=== PATIENT | male | born 1965 | race Caucasian/White ===

== ENCOUNTER 2016-12-05 12:12 | Outpatient (CLI) | payer MEDICAID | END 2016-12-05 12:13 | disposition home or self-care (01) | DX: I10 Essential (primary) hypertension (principal); Z13.1 Encounter for screening for diabetes mellitus; Z13.29 Encounter for screening for other suspected endocrine disorder; Z13.0 Encounter for screening for diseases of the blood and blood-forming organs and certain disorders involving the immune mechanism; I69.959 Hemiplegia and hemiparesis following unspecified cerebrovascular disease affecting unspecified side ==

== ENCOUNTER 2017-05-13 13:20 | Outpatient (CLI) | payer MEDICAID ==
--- NOTE | 2017-05-13 16:15 | XRAY Report ---
THREE VIEW RIGHT ELBOW: 05/13/2017 CLINICAL INDICATION: Contusion followup. FINDINGS: AP, lateral, and oblique views of the right elbow demonstrate no evidence of fracture or d islocation. The joint spaces are preserved. No radiopaque foreign body is seen in the soft tissues. IMPRESSION: NORMAL RIGHT ELBOW. JOB #: [id number] EXT JOB #:[id number]
== END 2017-05-13 13:21 | disposition home or self-care (01) ==
LOC: DI.S 13:20
PROVIDERS: ATTEND Nurse Practitioner Family
DX: S50.01XD Contusion of right elbow, subsequent encounter (principal)

== ENCOUNTER 2018-03-03 15:08 | Outpatient (CLI) | payer MEDICAID ==
[2018-03-03 19:35] LABS: ALBUMIN 3.7 g/dL (3.2-5.5); ALBUMIN/GLOBULIN RATIO 1.2 (1.0-2.2); ALKALINE PHOSPHATASE 73 IU/L (42-121); ALT ALANINE AMINOTRANSFERASE 56 IU/L (10-60); AST ASPARTATE AMINOTRANSFERASE 51 IU/L (10-42); BILIRUBIN,TOTAL 1.1 mg/dL (0.2-1.0); BUN - BLOOD UREA NITROGEN 13 mg/dL (6-20); CALCIUM 8.7 mg/dL (8.5-10.3); CARBON DIOXIDE - CO2 27 mmol/L (21-32); CHLORIDE 102 mmol/L (101-111); CHOL/HDL RATIO 4.3 (<5.0); CHOLESTEROL 198 mg/dL; CREATININE 0.8 mg/dL (0.6-1.2); GFR - MDRD 102 (>89); GLUCOSE 141 mg/dL (70-100); HDL CHOLESTEROL 46 mg/dL; LDL CHOLESTEROL,CALCULATED 92 mg/dL; SODIUM 137 mmol/L (135-145); TOTAL PROTEIN 6.9 g/dL (6.7-8.2); VLDL CHOLESTEROL 60 mg/dL
== END 2018-03-03 15:09 | disposition home or self-care (01) ==
LOC: LAB.S 15:08
PROVIDERS: ATTEND Nurse Practitioner Family
DX: I10 Essential (primary) hypertension (principal); F10.10 Alcohol abuse, uncomplicated; I69.959 Hemiplegia and hemiparesis following unspecified cerebrovascular disease affecting unspecified side
CPT/HCPCS: 36415; 80053; 80061; 83721

== ENCOUNTER 2018-03-17 14:48 | Outpatient (CLI) | payer MEDICAID ==
[2018-03-17 20:17] LABS: HB2 TOTAL 16.2 g/dL; HEMOGLOBIN A1C 0.87 g/dL; HEMOGLOBIN A1C % 7.1 % (4.6-6.2)
== END 2018-03-17 14:49 | disposition home or self-care (01) ==
LOC: LAB.S 14:48
PROVIDERS: ATTEND Nurse Practitioner Family
DX: R73.01 Impaired fasting glucose (principal)
CPT/HCPCS: 36415; 83036

== ENCOUNTER 2018-04-14 10:33 | Outpatient (CLI) | payer MEDICAID ==
[2018-04-14 18:19] LABS: CALCIUM 8.3 mg/dL (8.5-10.3); CREATININE 0.8 mg/dL (0.6-1.2)
[2018-04-14 18:21] LABS: HB2 TOTAL 15.9 g/dL; HEMOGLOBIN A1C 0.86 g/dL; HEMOGLOBIN A1C % 7.1 % (4.6-6.2)
== END 2018-04-14 10:34 | disposition home or self-care (01) ==
LOC: LAB.S 10:33
PROVIDERS: ATTEND Nurse Practitioner Family
DX: R73.01 Impaired fasting glucose (principal)
CPT/HCPCS: 36415; 80048; 83036

== ENCOUNTER 2018-11-17 08:00 | Outpatient (CLI) | payer MEDICAID ==
[2018-11-17 18:59] LABS: HB2 TOTAL 16.5 g/dL; HEMOGLOBIN A1C 0.68 g/dL; HEMOGLOBIN A1C % 5.9 % (4.6-6.2)
== END 2018-11-17 23:59 | disposition home or self-care (01) ==
LOC: LAB.S 08:00
PROVIDERS: ATTEND Nurse Practitioner Family
DX: E11.9 Type 2 diabetes mellitus without complications (principal)
CPT/HCPCS: 36415; 83036

== ENCOUNTER 2020-04-27 11:07 | Outpatient (CLI) | payer MEDICAID ==
[2020-04-27 15:21] LABS: BASOPHILS # (AUTO) 0.1 10^3/uL (0.0-0.1); BASOPHILS % (AUTO) 0.8 %; EOSINOPHILS # (AUTO) 0.2 10^3/uL (0.0-0.7); EOSINOPHILS % (AUTO) 2.3 %; HGB - HEMOGLOBIN 16.2 g/dL (14.0-18.0); LYMPHOCYTES # (AUTO) 2.1 10^3/uL (1.5-3.5); LYMPHOCYTES % (AUTO) 27.5 %; MEAN CORPUSCULAR HEMOGLOBIN 34.4 pg (27.0-31.0); MEAN CORPUSCULAR HGB CONC 33.8 g/dL (32.0-36.0); MEAN CORPUSCULAR VOLUME 101.9 fL (80.0-94.0); MEAN PLATELET VOLUME 9.6 fL (7.4-11.4); MONOCYTES # (AUTO) 0.7 10^3/uL (0.0-1.0); MONOCYTES % (AUTO) 8.8 %; NEUTROPHILS # (AUTO) 4.7 10^3/uL (1.5-6.6); NEUTROPHILS % (AUTO) 59.8 %; PLT - PLATELET COUNT 215 10^3/uL (130-450); RED BLOOD COUNT 4.71 10^6/uL (4.70-6.10); RED CELL DISTRIBUTION WIDTH 11.9 % (12.0-15.0); WHITE BLOOD COUNT 7.8 x10^3/uL (4.8-10.8)
[2020-04-27 15:51] LABS: ALBUMIN 4.1 g/dL (3.2-5.5); ALBUMIN/GLOBULIN RATIO 1.3 (1.0-2.2); ALKALINE PHOSPHATASE 74 IU/L (42-121); ALT ALANINE AMINOTRANSFERASE 34 IU/L (10-60); AST ASPARTATE AMINOTRANSFERASE 24 IU/L (10-42); BILIRUBIN,TOTAL 0.6 mg/dL (0.2-1.0); BUN - BLOOD UREA NITROGEN 17 mg/dL (6-20); CALCIUM 8.9 mg/dL (8.5-10.3); CARBON DIOXIDE - CO2 27 mmol/L (21-32); CHLORIDE 103 mmol/L (101-111); CHOLESTEROL 186 mg/dL; GLUCOSE 134 mg/dL (70-100); HDL CHOLESTEROL 47 mg/dL; LDL CHOLESTEROL,CALCULATED 102 mg/dL; LDL/HDL RATIO 2.2 (<3.6); SODIUM 139 mmol/L (135-145); TOTAL PROTEIN 7.2 g/dL (6.7-8.2); VLDL CHOLESTEROL 37 mg/dL
[2020-04-27 16:00] LABS: MICROALBUMIN,URINE 0.9 mg/dL (0-300.0)
[2020-04-27 18:54] LABS: HEMOGLOBIN A1c% 5.8 % (4.27-6.07)
== END 2020-04-27 11:08 | disposition home or self-care (01) ==
LOC: LAB.S 11:07
PROVIDERS: ATTEND Internal Medicine
DX: I10 Essential (primary) hypertension (principal); E11.9 Type 2 diabetes mellitus without complications; Z12.5 Encounter for screening for malignant neoplasm of prostate; Z13.220 Encounter for screening for lipoid disorders
CPT/HCPCS: 36415; 80053; 80061; 82043; 82570; 83036; 83721; 84153; 84443; 85025

== ENCOUNTER 2021-09-20 10:15 | Outpatient (CLI) | payer MEDICAID ==
[2021-09-20 15:26] LABS: BASOPHILS % (AUTO) 0.5 %; EOSINOPHILS # (AUTO) 0.2 10^3/uL (0.0-0.7); EOSINOPHILS % (AUTO) 2.6 %; HCT - HEMATOCRIT 41.5 % (42.0-52.0); HGB - HEMOGLOBIN 14.1 g/dL (14.0-18.0); LYMPHOCYTES # (AUTO) 1.8 10^3/uL (1.5-3.5); LYMPHOCYTES % (AUTO) 27.9 %; MEAN CORPUSCULAR HEMOGLOBIN 33.3 pg (27.0-31.0); MEAN CORPUSCULAR VOLUME 98.1 fL (80.0-94.0); MEAN PLATELET VOLUME 9.5 fL (7.4-11.4); MONOCYTES # (AUTO) 0.5 10^3/uL (0.0-1.0); MONOCYTES % (AUTO) 7.9 %; NEUTROPHILS # (AUTO) 3.9 10^3/uL (1.5-6.6); NEUTROPHILS % (AUTO) 60.8 %; PLT - PLATELET COUNT 175 10^3/uL (130-450); RED BLOOD COUNT 4.23 10^6/uL (4.70-6.10); RED CELL DISTRIBUTION WIDTH 12.4 % (12.0-15.0); WHITE BLOOD COUNT 6.5 x10^3/uL (4.8-10.8)
[2021-09-20 16:07] LABS: ALBUMIN/GLOBULIN RATIO 1.4 (1.0-2.2); ALKALINE PHOSPHATASE 63 IU/L (42-121); ALT ALANINE AMINOTRANSFERASE 30 IU/L (10-60); AST ASPARTATE AMINOTRANSFERASE 24 IU/L (10-42); BILIRUBIN,TOTAL 0.8 mg/dL (0.2-1.0); BUN - BLOOD UREA NITROGEN 13 mg/dL (6-20); CARBON DIOXIDE - CO2 25 mmol/L (21-32); CHLORIDE 103 mmol/L (101-111); CHOL/HDL RATIO 2.3 (<5.0); CHOLESTEROL 144 mg/dL; CREATININE 0.7 mg/dL (0.6-1.2); GFR - MDRD 117 (>89); GLUCOSE 108 mg/dL (70-100); HDL CHOLESTEROL 62 mg/dL; LDL CHOLESTEROL,CALCULATED 51 mg/dL; LDL/HDL RATIO 0.8 (<3.6); POTASSIUM 3.8 mmol/L (3.5-5.0); SODIUM 136 mmol/L (135-145); TOTAL PROTEIN 6.8 g/dL (6.7-8.2); TRIGLYCERIDES 154 mg/dL; VLDL CHOLESTEROL 31 mg/dL
[2021-09-20 16:41] LABS: THYROID STIMULATING HORMONE 3.85 uIU/mL (0.34-5.60)
[2021-09-20 19:57] LABS: ESTIMATED AVERAGE GLUCOSE 126 mg/dL (70-100)
== END 2021-09-20 10:16 | disposition home or self-care (01) ==
LOC: LAB.S 10:15
PROVIDERS: ATTEND Registered Nurse
DX: E78.5 Hyperlipidemia, unspecified (principal); E11.9 Type 2 diabetes mellitus without complications; I10 Essential (primary) hypertension
CPT/HCPCS: 36415; 80053; 80061; 82043; 82570; 83036; 83721; 84443; 85025

== ENCOUNTER 2023-06-18 11:49 | Outpatient (CLI) | payer MEDICAID | END 2023-06-18 11:50 | disposition EMS.NT | LOC: EMS 11:49 | DX: I95.9 Hypotension, unspecified (principal) ==

== ENCOUNTER 2023-06-20 10:55 | Outpatient (CLI) | payer MEDICAID | END 2023-06-20 10:56 | disposition critical access hospital (66) | LOC: EMS 10:55 | DX: R53.1 Weakness (principal); R42 Dizziness and giddiness | CPT/HCPCS: A0425; A0427; A0999 ==

== ENCOUNTER 2023-06-20 11:18 | Inpatient (IN) | payer MEDICAID ==
[2023-06-20] MEDS ORDERED: LACTATED RINGERS 1,000 ML IV STA (11:28)
[2023-06-20] MEDS ORDERED: SODIUM CHLORIDE 0.9% 1,000 ML IV STA (11:28)
--- NOTE | 2023-06-20 11:29 | ED Physician Documentation ---
History of Present Illness - Stated complaint Stated Complaint: DEHYDRATED - History obtained from History obtained from: Patient - Additonal information Additional information: 57-year-old gentleman with history of CVA with right-sided deficits has been feeling off for about the last 10 days. Has had no appetite and subsequently has not been eating or drinking well and now is feeling dizzy and lightheaded when he tries to transfer and has not had a bowel movement in about 5 days but does not feel like he is constipated per se, just like there is nothing in him. He denies any abdominal or chest pain. No headache. Review of Systems Constitutional: reports: Fatigue. denies: Fever, Chills, Myalgias Nose: denies: Rhinorrhea / runny nose, Congestion Cardiac: denies: Chest pain / pressure, Palpitations Respiratory: denies: Dyspnea, Cough GI: reports: Nausea (mild), Constipation. denies: Abdominal Pain, Vomiting, Diarrhea : denies: Dysuria, Frequency PD PAST MEDICAL HISTORY - Present Medications Home Medications: Ambulatory Orders Medication Instructions Recorded Confirmed Amlodipine Besylate [Norvasc] 10 mg PO DAILY 06/20/23 06/20/23 Fluoxetine HCl [Prozac] 20 mg PO DAILY 06/20/23 06/20/23 Metoprolol Tartrate [Lopressor] 50 mg PO BID 06/20/23 06/20/23 - Allergies Allergies/Adverse Reactions: Allergies Allergy/AdvReac Type Severity Reaction Status Date / Time No Known Drug Allergies Allergy Verified 06/20/23 11:40 PD ED PE NORMAL - Vitals Vital signs reviewed: Yes - General General: Alert and oriented X 3, No acute distress - HEENT HEENT: Other (Dry mucous membranes) - Neck Neck: Supple, no meningeal sign, No bony TTP - Cardiac Cardiac: RRR, No murmur - Respiratory Respiratory: No respiratory distress, Clear bilaterally - Abdomen Abdomen: Other (Small and easily reducible umbilical hernia, nontender, normal bowel sounds) - Back Back: No CVA TTP, No spinal TTP - Derm Derm: Normal color, Warm and dry - Extremities Extremities: No edema, No calf tenderness / cord - Neuro Neuro: Alert and oriented X 3, Normal speech, Other (contractured RUE) Results - Vitals Vitals: Vital Signs - 24 hr 06/20/23 06/20/23 11:26 12:08 Temperature 36.0 C L Heart Rate 86 73 Respiratory 18 18 Rate Blood Pressure 103/74 105/70 O2 Saturation 98 98 Oxygen O2 Source Room air - Labs Labs: Laboratory Tests 06/20/23 06/20/23 11:38 11:38 WBC 7.6 RBC 3.29 L Hgb 11.1 L Hct 29.7 L MCV 90.3 MCH 33.7 H MCHC 37.4 H RDW 11.7 L Plt Count 191 MPV 9.2 Neut # (Auto) 5.6 Lymph # (Auto) 1.0 L Scott # (Auto) 0.8 Eos # (Auto) 0.1 Baso # (Auto) 0.0 Absolute Nucleated RBC 0.00 Nucleated RBC % 0.0 Sodium 141 Potassium 1.6 L* Chloride 95 L Carbon Dioxide 32 Anion Gap 14.0 H BUN 19 Creatinine 0.9 Estimated GFR (MDRD) 87 L Glucose 127 H Calcium 6.3 L* Magnesium 1.2 L Total Bilirubin 1.0 AST 33 ALT 23 Alkaline Phosphatase 64 Total Protein 5.3 L Albumin 3.1 L Globulin 2.2 Albumin/Globulin Ratio 1.4 PD Medical Decision Making - ED course ED course: 57-year-old gentleman with history of CVA presents with generalized weakness and a feeling of dehydration with orthostasis. Blood pressure prehospital was on the low side around 86/40. He was given IV fluids and labs were checked. Benign exam. Labs notable for modest normocytic anemia and profound hypokalemia and hypocalcemia. Also modest hypomagnesemia. Further history obtained and patient states he was drinking heavily and stopped when all of this started, about 10 days ago. That said he denies any withdrawal syndrome per se. Given his significant electrolyte abnormalities call to the hospitalist at 12:10 PM for admission. Departure - Departure Disposition: [facility] DC/Xfer Clinical Impression: Hypokalemia, Hypocalcemia
[2023-06-20 11:45] LABS: BASOPHILS % (AUTO) 0.3 %; EOSINOPHILS # (AUTO) 0.1 10^3/uL (0.0-0.7); EOSINOPHILS % (AUTO) 0.7 %; HCT - HEMATOCRIT 29.7 % (42.0-52.0); HGB - HEMOGLOBIN 11.1 g/dL (14.0-18.0); LYMPHOCYTES % (AUTO) 13.6 %; MEAN CORPUSCULAR HEMOGLOBIN 33.7 pg (27.0-31.0); MEAN CORPUSCULAR HGB CONC 37.4 g/dL (32.0-36.0); MEAN CORPUSCULAR VOLUME 90.3 fL (80.0-94.0); MEAN PLATELET VOLUME 9.2 fL (7.4-11.4); MONOCYTES # (AUTO) 0.8 10^3/uL (0.0-1.0); MONOCYTES % (AUTO) 11.1 %; NEUTROPHILS # (AUTO) 5.6 10^3/uL (1.5-6.6); NEUTROPHILS % (AUTO) 73.9 %; PLT - PLATELET COUNT 191 10^3/uL (130-450); RED BLOOD COUNT 3.29 10^6/uL (4.70-6.10); RED CELL DISTRIBUTION WIDTH 11.7 % (12.0-15.0); WHITE BLOOD COUNT 7.6 x10^3/uL (4.8-10.8)
[2023-06-20 12:01] LABS: ALBUMIN 3.1 g/dL (3.2-5.5); MAGNESIUM 1.2 mg/dL (1.7-2.3)
[2023-06-20 12:04] LABS: ALBUMIN/GLOBULIN RATIO 1.4 (1.0-2.2); CALCIUM 6.3 mg/dL (8.5-10.3); CREATININE 0.9 mg/dL (0.6-1.3); POTASSIUM 1.6 mmol/L (3.5-4.5); TOTAL PROTEIN 5.3 g/dL (6.4-8.9)
[2023-06-20] MEDS ORDERED: CALCIUM GLUC 1,000MG/50ML-NACL 1,000 MG/50 ML BAG IV STA (12:08)
[2023-06-20] MEDS ORDERED: MAGNESIUM SULFATE 2 GRAM 2 GM/50 ML BAG IV ONE (12:08)
[2023-06-20] MEDS ORDERED: PROCHLORPERAZINE 10 MG/2 ML VIAL IVP PRN (12:53)
[2023-06-20] MEDS ORDERED: ONDANSETRON 4 MG/2 ML VIAL IVP PRN (12:53)
[2023-06-20] MEDS ORDERED: SODIUM CHLORIDE FLUSH 0.9% 10 ML SYRINGE IVP PRN (12:53)
--- NOTE | 2023-06-20 12:59 | HISTORY & PHYSICAL EXAMINATION ---
Chief Complaint - Chief Complaint Chief Complaint: does not feel like himself History of Present Illness - Admitted From Admitted From:: home - History Obtained From Records [facility]ed: [facility] History obtained from: patient Exam Limitations: none - History of Present Illness HPI Comment/Other: Drew is a 57-year-old man with history of DM2, alcohol abuse, CVA, and hx of stroke 10 years ago which left him with right-sided deficits. He has been feeling off for about the last 10 days. Patient confirms regularly drinking 1 pint of whisky a day, but has not had alcohol for 10 days and he stopped drinking alcohol because he felt "dehydrated". He states he has consumed water and Gatorade regularly and has not had a bowel movement in 5 days, but denies constipation symptoms. He has chronic diarrhea with metformin use. He feels light headed when trying to transfer but denies headaches. He has slight cough when speaking. He does not have any chest pain, palpitations, SOB, dyspnea, or abdomen pain. Blood pressure during admission was 86/40 but have stabilized since. Labs show electrolyte imbalance with anemia and profound hypokalemia, profound hypocalcemia, and hypomagnesemia. Lab values indicate true calcium deficiency. Patient has been admitted to inpatient for electrolyte stabilization and care has begun with IV fluids and supplement electrolytes. History - Past Medical History Cardiovascular: reports: Hypertension, Coronary artery disease Respiratory: reports: None Neuro: reports: None Endocrine/Autoimmune: reports: Type 2 diabetes GI: reports: None MAIL HANDLER: reports: None : reports: Other (chronic diarrhea, constipation past 5 days) HEENT: reports: None Psych: reports: None Musculoskeletal: reports: Hemiplegia (on right side ) Derm: reports: None Other Past Medical History: R sided deficit from 2016 stroke, chews tobacco, umbilical hernia - Past Surgical History Ortho: reports: Other - Family & Social History Family History Comment/Other: adopted. Has 1 adopted sister who does not speak with Living arrangement: At home Living Situation: Alone Social History Notes: Eats 1 frozen meal a day - Substance History Use: Uses substance without health or social issues: Alcohol (1 pint whisky a day), Cannabis (stopped 7 years ago), Other (started drinking when he was 21. Increase alcohol usage after his stroke which left his paralyzed on his right side. He also drink to help cope with increased loneliness from his new [place] of friends passing away. He starts drinking at 9pm every day.) Abuse: Recurrent use of substance despite neg consequences: Alcohol - POLST Patient has POLST: No POLST Status: Full Code Meds/Allgy - Home Medications Home Medications: Ambulatory Orders Medication Instructions Recorded Confirmed Amlodipine Besylate [Norvasc] 10 mg PO DAILY 06/20/23 06/20/23 Fluoxetine HCl [Prozac] 20 mg PO DAILY 06/20/23 06/20/23 Lisinopril [Zestril] 30 mg PO DAILY 06/20/23 06/20/23 Metoprolol Tartrate [Lopressor] 50 mg PO BID 06/20/23 06/20/23 Rosuvastatin Calcium [Crestor] 10 mg PO HS 06/20/23 06/20/23 metFORMIN [Glucophage] 1,000 mg PO ONCE 06/20/23 06/20/23 - Allergies Allergies/Adverse Reactions: Allergies Allergy/AdvReac Type Severity Reaction Status Date / Time No Known Drug Allergies Allergy Verified 06/20/23 11:40 Review of Systems - Constitutional Constitutional: reports: Weakness. denies: Fever, Chills, Malaise, Diaphoresis, Night sweats - Eyes Eyes: denies: Pain, Irritation - Ears, Nose & Throat Ears, Nose & Throat: denies: Tinnitus, Vertigo, Sore throat - Cardiovascular Cariovascular: denies: Irregular heart rate, Palpitations, Chest pain - Respiratory Respiratory: reports: Cough (with dry mouth) - Gastrointestinal Gastrointestinal: reports: Constipation (for 5 days), Diarrhea (with metformin use) - Genitourinary Genitourinary: denies: Dysuria, Frequency, Urgency - Musculoskeletal Musculoskeletal: reports: Stiffness. denies: Muscle pain, Back pain, Muscle aches - Integumentary Integumentary: denies: Rash, Lesions, Dryness - Neurological Neurological: reports: Numbness (on his upper torso as he sleeps), Pre-existing deficit, Other (right sided hemiplegia) - Psychiatric Psychiatric: reports: Depression. denies: Anxiety, Suicidal, Delusions, Hallucinations - Endocrine Endocrine: denies: Polyuria, Polydypsia, Polyphagia - Hematologic/Lymphatic Hematologic/Lymphatic: denies: Anemia, Bruising, Petechiae, Blood clots Prior Level of Functionality: lives alone functions independently Exam - Vital Signs Reviewed Vital Signs: Yes Vital Signs: Vital Signs x48h Temp Pulse Resp BP Pulse Ox 06/20/23 12:08 73 18 105/70 98 06/20/23 11:26 36.0 C L 86 18 103/74 98 - Physical Exam General Appearance: positive: No acute distress, Alert, Other (57 year old man with distended stomach in hospital gown laying in bed with stuttering speach and cough when speaking.) Eyes Bilateral: positive: Normal inspection, PERRL, EOMI, No scleral icterus ENT: positive: Dry mucous membranes, Other Neck: positive: No JVD. negative: Stiff neck Respiratory: positive: Chest non-tender, No respiratory distress, Breath sounds nml Cardiovascular: positive: Regular rate & rhythm, No murmur, No gallop Abdomen: positive: Non-tender, No organomegaly, Nml bowel sounds, Other (bloated abdomen with tympanic percussion with fluid weight.) Back: positive: Nml inspection Skin: positive: Color nml, No rash, Warm, Dry Extremities: positive: Non-tender, No pedal edema, Other (right side hemiplegia. Unable to move right UE and right LE) Neurologic/Psychiatric: positive: Oriented x3, Sensation nml, Mood/affect nml, Slurred/abnml speech (stuttered speech) Conclusion/Plan - Problem List (1) Hypokalemia Conclusion/Plan: ASSESSMENT/PLAN --potassium level at 1.6 on 06/20 PLAN: --Start IV potassium chloride --Daily BMP monitor 2) Hypocalcemia ASSESSMENT/PLAN --calcium level at 6.3 on 06/20 PLAN: --Start IV potassium chloride --Daily BMP monitor 3) Hypomagnesesia ASSESSMENT/PLAN --Magnesium lvl at 1.2 on 06/20 PLAN: --Given 1 time does of IV magnesium sulfate --Daily BMP monitor 4) Diarrhea ASSESSMENT/PLAN --Patient self report daily chronic diarrhea PLAN: --KUB has been ordered --colonoscopy ordered 5) Dehydration ASSESSMENT/PLAN --Dry mucous membrane PLAN: --Start IV saline 6) Alcohol withdrawal ASSESSMENT/PLAN --hx of alcohol use stopping 10 days ago with minimum withdrawal symptoms PLAN: -- Start PO thiamine daily -- Start PO Folate via vitamin daily -- Monitor for alcohol withdrawal symptoms 7) Anemia ASSESSMENT/PLAN --Hgb of 11.1 on 06/20 PLAN: --Anemia panel ordered along with reticulocyte count --Daily monitor of CBC 8) DM2 ASSESSMENT/PLAN --hx of DM2 managed by metformin PLAN: --A1C ordered for 06/21 --Continue metformin 9) Depression ASSESSMENT/PLAN --more than 3 years of anhedonia --multiple years of depressed mood PLAN: --referral to PCP and social work - Lab Results Lab results reviewed: Yes Lee Bones: 06/20/23 11:38 06/20/23 11:38 Core Measures - Anticipated LOS I expect patient to be DC'd or transferred within 96 hours.: Yes - DVT/VTE - Prophylaxis VTE/DVT Device ordered at admit?: Yes
[2023-06-20] MEDS: POTASSIUM CHLOR 10 MEQ/100 ML 10 MEQ/100 ML BAG IV SCH ×6 (13:27→23:55)
[2023-06-20] MEDS: D5NS W/20 MEQ KCL 1,000 ML IV SCH (14:25)
[2023-06-20] MEDS: SODIUM CHLORIDE FLUSH 0.9% 10 ML SYRINGE IVP SCH (16:14)
[2023-06-20] MEDS ORDERED: CALCIUM GLUC 1,000MG/50ML-NACL 1,000 MG/50 ML BAG IV ONE (17:16)
--- NOTE | 2023-06-20 17:16 | PHARMACY PROGRESS NOTE ---
- Best Possible Medication History Admit Date and Time: 06/20/23 1324 Processed by: Pharmacy Medication History completed: Yes Patient Interview: Completed Secondary Source(s): Insurance records (MEDREC DONE BY MURALI WITH PT) As the person ultimately responsible for medication therapy, providers are able to order a medication from an existing home medication list in [facility] via the "Reconcile Routine" prior to Confirmation of that medication by telecommunications support. Such practice is discouraged except when the physician, in their clinical judgment, deems that a medical need exists for a medication without regard to previous use.
[2023-06-20 17:25] LABS: ABSOLUTE RETICS # AUTO 0.06 10^6/uL (0.020-0.110); RED BLOOD COUNT 3.47 10^6/uL (4.70-6.10); RETICULOCYTE COUNT % (AUTO) 1.74 % (0.5-2.3)
[2023-06-20] MEDS: PRENATAL VITAMIN TABLET PO SCH (17:50)
[2023-06-20] MEDS: THIAMINE 100 MG TABLET PO SCH (17:50)
[2023-06-20 17:52] LABS: % IRON SATURATION 23 % (20-50); IRON 52 ug/dL (50-212); TOTAL IRON BINDING CAPACITY 230 ug/dL (250-450); TRANSFERRIN 164 mg/dL (203-362)
--- NOTE | 2023-06-20 18:09 | XRAY Report ---
PROCEDURE: Abdomen 2 View X-Ray INDICATIONS: alternating constipation / diarrhea TECHNIQUE: 2 views of the abdomen were acquired. COMPARISON: None. FINDINGS: Surgical changes and devices: None. Bowel: No pneumoperitoneum. Multiple air distended bowel loops in upper abdomen and right abdomen is seen. Mild to moderate fecal stasis in the colon is also seen. Soft tissues: No masses; visualized solid organ contours appear normal in size. No suspicious abdom inal calcifications. Bones: No suspicious bony abnormalities. IMPRESSION: 1. Nonspecific bowel gas pattern for obstruction. Mild to moderate constipation. No gross free air. Reviewed by: Daniel Chin MD on 06/20/2023 6:07 PM PST Approved by: Daniel Chin MD on 06/20/2023 6:07 PM PST Station ID: [id number]
[2023-06-20 18:50] LABS: CALCIUM 6.9 mg/dL (8.5-10.3); CREATININE 0.8 mg/dL (0.6-1.3); POTASSIUM 1.6 mmol/L (3.5-4.5)
[2023-06-20] MEDS ORDERED: POTASSIUM CHLORIDE 20 MEQ TABLET PO ONE (22:02)
[2023-06-21] MEDS: SODIUM CHLORIDE FLUSH 0.9% 10 ML SYRINGE IVP SCH ×3 (00:14→16:00)
[2023-06-21] MEDS: POTASSIUM CHLOR 10 MEQ/100 ML 10 MEQ/100 ML BAG IV SCH ×8 (01:44→17:03)
[2023-06-21] MEDS: D5NS W/20 MEQ KCL 1,000 ML IV SCH ×3 (01:51→21:39)
[2023-06-21 07:33] LABS: BASOPHILS % (AUTO) 0.5 %; EOSINOPHILS # (AUTO) 0.1 10^3/uL (0.0-0.7); HCT - HEMATOCRIT 27.5 % (42.0-52.0); HGB - HEMOGLOBIN 10.1 g/dL (14.0-18.0); LYMPHOCYTES # (AUTO) 1.2 10^3/uL (1.5-3.5); LYMPHOCYTES % (AUTO) 20.1 %; MEAN CORPUSCULAR HEMOGLOBIN 33.8 pg (27.0-31.0); MEAN CORPUSCULAR HGB CONC 36.7 g/dL (32.0-36.0); MEAN PLATELET VOLUME 9.6 fL (7.4-11.4); MONOCYTES # (AUTO) 0.6 10^3/uL (0.0-1.0); MONOCYTES % (AUTO) 9.1 %; NEUTROPHILS # (AUTO) 4.2 10^3/uL (1.5-6.6); PLT - PLATELET COUNT 182 10^3/uL (130-450); RED BLOOD COUNT 2.99 10^6/uL (4.70-6.10); RED CELL DISTRIBUTION WIDTH 11.9 % (12.0-15.0)
[2023-06-21 07:58] LABS: CALCIUM 6.4 mg/dL (8.5-10.3); CREATININE 0.7 mg/dL (0.6-1.3); POTASSIUM 1.7 mmol/L (3.5-4.5)
[2023-06-21] MEDS: ENOXAPARIN 40 MG/0.4 ML SYRINGE SUBQ SCH (08:41)
[2023-06-21] MEDS: PRENATAL VITAMIN TABLET PO SCH (08:41)
[2023-06-21] MEDS: THIAMINE 100 MG TABLET PO SCH (08:41)
[2023-06-21] MEDS ORDERED: LACTOBACILLUS RHAMNOSUS GG CAPSULE PO SCH (09:00)
[2023-06-21 09:19] LABS: MAGNESIUM 1.2 mg/dL (1.7-2.3)
[2023-06-21] MEDS ORDERED: MAGNESIUM SULFATE 2 GRAM 2 GM/50 ML BAG IV ONE (09:20)
[2023-06-21] MEDS ORDERED: LORazepam 2 MG/ML VIAL IVP PRN (09:21)
[2023-06-21] MEDS: CYANOCOBALAMIN 500 MCG TABLET PO SCH (10:34)
[2023-06-21 12:00] LABS: ESTIMATED AVERAGE GLUCOSE 105 mg/dL (70-100); HEMOGLOBIN A1c% 5.3 % (4.27-6.07)
[2023-06-21] MEDS: INSULIN LISPRO 300 UNIT/3 ML PEN SUBQ SCH ×3 (14:03→21:40)
--- NOTE | 2023-06-21 16:16 | PROVIDER PROGRESS NOTE ---
Assessment/Plan - Problem List (1) Hypokalemia Assessment/Plan: Potassium level still severely wow at 1.6 today. Suspect it is from chronic poor nutrition from alcohol abuse. Telem has shown no severe dysrhythmias Plan: Give IV K Lionel and startpo KCl Monitor BMP daily and check K twice daily 2) Hypocalcemia Conclusion/Plan: Calcium level 6.9 with Alb 2.7 Plan: Replace with Ca in the form of TUMS scheduled Monitor electrolytes daily 3) Hypomagnesesia Conclusion/Plan: Magnesium was severely depleted at 1.1 Plan: Replace Mg Monitor Mg daily 4) Diarrhea Conclusion/Plan: Patient self reports daily chronic diarrhea Plan: Monitor if >3 per day and then would get C diff test 5) DM type 2 He is on Metformin per reconciled med list His A1c came back at 5.8, consistent with excessively tight glu control His Metformin is currently on hold due to risk of JACQUES with this dehydration and also due to malnutrition Plan: Remain off Metformin Glu checks, hypoglycemia protocol and ssI coverage 6) Alcohol abuse Conclusion/Plan: Hx of alcohol use, he stopped 10 days ago with minimum withdrawal symptoms Plan: Cont po thiamine daily Cont po vitamin daily Monitor for alcohol withdrawal symptoms, in case he stopped alcohol intake more recently than 10 days ago, then CIWA protocol ordered 7) Anemia Conclusion/Plan: Hgb of 11.1 on 06/20 Plan: Anemia W/U panel ordered Follow CBC w/out diff daily, transfuse if Hgb <7 8) Stroke with R sided weakness Plan: PT and OT eval and treat Start daily baby ASA w/food His BP meds are on hold while BP normal, poss from dehydration 9) Depression Conclusion/Plan: He describes more than 3 years of anhedonia, multiple years of depressed mood Social work consult requested for MHE and rec. He accepted resources from [facility]. Plan: Will resume his Proza - Current Meds Current Meds: Current Medications Generic Name Dose Route Start Last Admin Trade Name Citlalli PRN Reason Stop Dose Admin Cyanocobalamin 500 mcg 06/21/23 09:00 06/21/23 10:34 Cyanocobalamin 500 Mcg Tablet PO 500 mcg DAILY BUDDY Administration Enoxaparin Sodium 40 mg 06/21/23 09:00 06/21/23 08:41 Enoxaparin 40 Mg/0.4 Ml Syringe SUBQ 40 mg DAILY BUDDY Administration Potassium Chloride/Dextrose/Sod Cl 1,000 mls @ 100 mls/hr 06/20/23 13:00 06/21/23 12:54 D5ns W/20 Meq Kcl IV 100 mls/hr .Q10H BUDDY Administration Insulin Human Lispro 1 - 5 unit 06/21/23 12:00 06/21/23 14:03 Insulin Lispro 300 Unit/3 Ml Pen SUBQ 1 unit 0800,1200,1700,2100 BUDDY Administration Protocol Multivit/Folic Acid/Iron 1 tab 06/20/23 18:00 06/21/23 08:41 Vitamin Tablet PO 1 tab DAILYWM BUDDY Administration Sodium Chloride 10 ml 06/20/23 17:00 06/21/23 16:00 Sodium Chloride Flush 0.9% 10 Ml Syringe IVP 10 ml 0100,0900,1700 BUDDY Administration Thiamine HCl 100 mg 06/20/23 17:19 06/21/23 08:41 Thiamine 100 Mg Tablet PO 100 mg DAILY BUDDY Administration - Lab Result Fish Bone Diagrams: 06/21/23 07:10 06/22/23 05:49 - Additional Planning My Orders: My Active Orders 06/20/23 17:00 Sodium Chloride Flush 0.9% [Normal Saline Flush 0.9%] 10 ml IVP 0100,0900,1700 06/21/23 Evaluate and Treat OT [OT] Routine Evaluate and Treat PT [PT] Routine 06/21/23 09:00 Cyanocobalamin [Vitamin B-12] 500 mcg PO DAILY Enoxaparin [Lovenox] 40 mg SUBQ DAILY 06/21/23 09:21 CIWA - AR Score Card [RC] Q4HR Social Work Consult [CONS] Routine LORazepam INJ [Ativan Inj (Vial)] 1 mg IVP Q30M PRN 06/21/23 10:40 Blood Glucose Checks - Eating [RC] 0800,1200,1700,2100 Initiate Hypoglycemia Protocol [RC] .protocol 06/21/23 12:00 Insulin Lispro [Humalog Kwikpen U-100] 1 - 5 unit SUBQ 0800,1200,1700,2100 06/21/23 17:30 MAGNESIUM [CHEM] Timed POTASSIUM [CHEM] Timed 06/22/23 05:00 CALCIUM [CHEM] DAILYLAB COMPREHENSIVE METABOLIC PANEL [CHEM] DAILYLAB PHOSPHORUS [CHEM] DAILYLAB 06/23/23 05:00 COMPREHENSIVE METABOLIC PANEL [CHEM] DAILYLAB 06/24/23 05:00 COMPREHENSIVE METABOLIC PANEL [CHEM] DAILYLAB 06/25/23 05:00 COMPREHENSIVE METABOLIC PANEL [CHEM] DAILYLAB Subjective - Subjective Patient Reports: Diarrhea (Has chronic loose BMs, had 1 today), Fatigue (He says he feels like he is in a fog, no HUFFMAN, fever, pain, N/V) Objective Vital Signs: Vital Signs - 24 hr 06/20/23 06/20/23 06/21/23 20:07 23:39 05:00 Temperature 36.8 C 36.6 C 36.6 C Heart Rate [ 84 88 83 Brachial] Respiratory 18 18 16 Rate Blood Pressure 112/82 H [Left Brachial artery] Blood Pressure 112/72 124/67 [Right Brachial artery] O2 Saturation 96 98 98 06/21/23 06/21/23 09:00 13:00 Temperature 36.5 C 36.4 C L Heart Rate [ 89 70 Brachial] Respiratory 18 18 Rate Blood Pressure [Left Brachial artery] Blood Pressure 100/72 120/70 [Right Brachial artery] O2 Saturation 97 96 Oxygen O2 Source Room air I&O (Last 24 Hrs): Intake and Output Totals x24h 06/19/23 06/20/23 06/21/23 23:59 23:59 23:59 Intake Total 3733.333 2536.667 Output Total 925 1250 Balance 2808.333 1286.667 General: Alert, Oriented x3, No acute distress HEENT: EOMI, Mucous membr. moist/pink Neck: Supple, No JVD Neuro: Alert, Other (R arm and R leg paretic) Cardiovascular: Regular rate, No murmurs Respiratory: No respiratory distress, Breath sounds nml Abdomen: Normal bowel sounds, No tenderness, Other (Mildly distended and tense) Extremities: No clubbing, No edema, No tenderness/swelling - Results Results: Laboratory Results WBC 6.0 x10^3/uL (4.8-10.8) 06/21/23 07:10 RBC 2.99 10^6/uL (4.70-6.10) L 06/21/23 07:10 Hgb 10.1 g/dL (14.0-18.0) L 06/21/23 07:10 Hct 27.5 % (42.0-52.0) L 06/21/23 07:10 MCV 92.0 fL (80.0-94.0) 06/21/23 07:10 MCH 33.8 pg (27.0-31.0) H 06/21/23 07:10 MCHC 36.7 g/dL (32.0-36.0) H 06/21/23 07:10 RDW 11.9 % (12.0-15.0) L 06/21/23 07:10 Plt Count 182 10^3/uL (130-450) 06/21/23 07:10 MPV 9.6 fL (7.4-11.4) 06/21/23 07:10 Reticulocyte % (Auto) 1.74 % (0.5-2.3) 06/20/23 17:20 Neut # (Auto) 4.2 10^3/uL (1.5-6.6) 06/21/23 07:10 Lymph # (Auto) 1.2 10^3/uL (1.5-3.5) L 06/21/23 07:10 [place] # (Auto) 0.6 10^3/uL (0.0-1.0) 06/21/23 07:10 Eos # (Auto) 0.1 10^3/uL (0.0-0.7) 06/21/23 07:10 Baso # (Auto) 0.0 10^3/uL (0.0-0.1) 06/21/23 07:10 Absolute Nucleated RBC 0.00 x10^3/uL 06/21/23 07:10 Nucleated RBC % 0.0 /100WBC 06/21/23 07:10 Absolute Retic 0.060 10^6/uL (0.020-0.110) 06/20/23 17:20 Sodium 143 mmol/L (135-145) 06/21/23 07:10 Potassium 1.7 mmol/L (3.5-4.5) L* 06/21/23 07:10 Potassium 1.7 mmol/L (3.5-4.5) L* 06/21/23 07:10 Chloride 103 mmol/L (101-111) 06/21/23 07:10 Carbon Dioxide 35 mmol/L (21-32) H 06/21/23 07:10 Anion Gap 5.0 (6-13) L 06/21/23 07:10 BUN 10 mg/dL (6-20) 06/21/23 07:10 Creatinine 0.7 mg/dL (0.6-1.3) 06/21/23 07:10 Estimated GFR (MDRD) 116 (>89) 06/21/23 07:10 Glucose 143 mg/dL (74-104) H 06/21/23 07:10 POC Whole Bld Glucose 176 mg/dL (70 - 100) H 06/21/23 13:54 Estimat Average Glucose 105 mg/dL (70-100) H 06/21/23 07:10 Hemoglobin A1c % 5.3 % (4.27-6.07) 06/21/23 07:10 Calcium 6.4 mg/dL (8.5-10.3) L* 06/21/23 07:10 Magnesium 1.2 mg/dL (1.7-2.3) L 06/21/23 07:10 Iron 52 ug/dL (50-212) 06/20/23 17:20 TIBC 230 ug/dL (250-450) L 06/20/23 17:20 % Saturation 23 % (20-50) 06/20/23 17:20 Transferrin 164 mg/dL (203-362) L 06/20/23 17:20 Total Bilirubin 1.0 mg/dL (0.2-1.0) 06/20/23 11:38 AST 33 IU/L (10-42) 06/20/23 11:38 ALT 23 IU/L (10-60) 06/20/23 11:38 Alkaline Phosphatase 64 IU/L (42-121) 06/20/23 11:38 Lactate Dehydrogenase 204 IU/L (140-271) 06/20/23 17:20 Total Protein 5.3 g/dL (6.4-8.9) L 06/20/23 11:38 Albumin 3.1 g/dL (3.2-5.5) L 06/20/23 11:38 Globulin 2.2 g/dL (2.1-4.2) 06/20/23 11:38 Albumin/Globulin Ratio 1.4 (1.0-2.2) 06/20/23 11:38 Vitamin B12 216 pg/mL (180-914) 06/20/23 17:20 Folate 4.6 ng/mL (5.90 - >24.8) L 06/21/23 07:10
[2023-06-21 18:12] LABS: MAGNESIUM 1.5 mg/dL (1.7-2.3)
[2023-06-21 18:17] LABS: POTASSIUM 2.2 mmol/L (3.5-4.5)
[2023-06-21] MEDS ORDERED: POTASSIUM PHOSPHATE 21 MMOL in SODIUM CHLORIDE 0.9% 250 ML IV ONE (18:37)
[2023-06-21] MEDS: MAGNESIUM OXIDE 400 MG TABLET PO SCH (19:25)
[2023-06-22] MEDS: SODIUM CHLORIDE FLUSH 0.9% 10 ML SYRINGE IVP SCH ×3 (00:32→15:56)
[2023-06-22 06:27] LABS: ALBUMIN 2.7 g/dL (3.2-5.5); MAGNESIUM 1.1 mg/dL (1.7-2.3); PHOSPHORUS 1.3 mg/dL (2.5-5.0)
[2023-06-22 06:42] LABS: ALBUMIN/GLOBULIN RATIO 1.5 (1.0-2.2); BILIRUBIN,TOTAL 0.6 mg/dL (0.2-1.0); CALCIUM 5.6 mg/dL (8.5-10.3); CREATININE 0.7 mg/dL (0.6-1.3); POTASSIUM 1.9 mmol/L (3.5-4.5); TOTAL PROTEIN 4.5 g/dL (6.4-8.9)
[2023-06-22] MEDS: D5NS W/20 MEQ KCL 1,000 ML IV SCH (07:13)
[2023-06-22] MEDS ORDERED: MAGNESIUM SULFATE 2 GRAM 2 GM/50 ML BAG IV ONE (08:08)
--- NOTE | 2023-06-22 08:12 | PROVIDER PROGRESS NOTE ---
Assessment/Plan - Problem List (1) Hypokalemia Assessment/Plan: Potassium level still severely low at 1.9 today (alll labs were reviewed). Suspect it is from chronic poor nutrition from alcohol abuse. Telem has shown no severe dysrhythmias Plan: Start po KCL 20 mEq daily Give KPO4 iv today and KCL iv riders Monitor BMP daily or BID Remain on telem 2) Hypophosphatemia Conclusion/Plan: Phos severly low at 1.3 Plan: Give KPO4 iv today Monitor PO4 daily 3) Hypocalcemia Conclusion/Plan: Calcium level severely low at 5.6 with Alb 2.7 Plan: Replace with Ca in the form of TUMS scheduled BID Monitor Ca daily 4) Hypomagnesesia Conclusion/Plan: Magnesium is still severely depleted at 1.1 Plan: Start Mag ox po BID Give Mag rider today Monitor Mg daily 5) DM type 2 He is on Metformin per reconciled med list His A1c came back at 5.8, consistent with excessively tight glu control His Metformin is currently on hold due to risk of JACQUES with this dehydration and also due to malnutrition Plan: Remain off Metformin Glu checks, hypoglycemia protocol and ssI coverage 6) Alcohol abuse Conclusion/Plan: Hx of alcohol use, he stopped 10 days ago with minimum withdrawal symptoms Plan: Cont po thiamine daily Cont po vitamin daily Will stop CIWA protocol 7) Anemia Conclusion/Plan: Hgb of 10.8 yesterday Plan: Anemia W/U panel ordered Follow CBC w/out diff intermittently, transfuse if Hgb <7 8) Stroke with R sided weakness Plan: PT and OT eval and treat Start daily baby ASA w/food His BP meds are on hold while BP normal, BP not hypertensive poss from dehydration 9) Depression Conclusion/Plan: He describes more than 3 years of anhedonia, multiple years of depressed mood Social work consult requested for MHE and rec. He accepted resources from [employer]. Plan: Will resume his Prozac 10) Diarrhea Conclusion/Plan: Patient self reports daily chronic diarrhea Plan: Monitor if >3 diarrhea BMs per day and then would get C diff test - Current Meds Current Meds: Current Medications Generic Name Dose Route Start Last Admin Trade Name Freq PRN Reason Stop Dose Admin Cyanocobalamin 500 mcg 06/21/23 09:00 06/21/23 10:34 Cyanocobalamin 500 Mcg Tablet PO 500 mcg DAILY BUDDY Administration Enoxaparin Sodium 40 mg 06/21/23 09:00 06/21/23 08:41 Enoxaparin 40 Mg/0.4 Ml Syringe SUBQ 40 mg DAILY BUDDY Administration Potassium Chloride/Dextrose/Sod Cl 1,000 mls @ 100 mls/hr 06/20/23 13:00 06/22/23 07:13 D5ns W/20 Meq Kcl IV 100 mls/hr .Q10H BUDDY Administration Insulin Human Lispro 1 - 5 unit 06/21/23 12:00 06/21/23 21:40 Insulin Lispro 300 Unit/3 Ml Pen SUBQ 2 unit 0800,1200,1700,2100 BUDDY Administration Protocol Magnesium Oxide 400 mg 06/21/23 19:00 06/21/23 19:25 Magnesium Oxide 400 Mg Tablet PO 400 mg DAILYWM BUDDY Administration Multivit/Folic Acid/Iron 1 tab 06/20/23 18:00 06/21/23 08:41 Vitamin Tablet PO 1 tab DAILYWM BUDDY Administration Sodium Chloride 10 ml 06/20/23 17:00 06/22/23 00:32 Sodium Chloride Flush 0.9% 10 Ml Syringe IVP Not Given 0100,0900,1700 BUDDY Thiamine HCl 100 mg 06/20/23 17:19 06/21/23 08:41 Thiamine 100 Mg Tablet PO 100 mg DAILY BUDDY Administration - Lab Result Fish Bone Diagrams: 06/21/23 07:10 06/22/23 05:49 - Additional Planning My Orders: My Active Orders 06/21/23 09:00 Cyanocobalamin [Vitamin B-12] 500 mcg PO DAILY Enoxaparin [Lovenox] 40 mg SUBQ DAILY 06/21/23 09:21 CIWA - AR Score Card [RC] Q4HR Social Work Consult [CONS] Routine LORazepam INJ [Ativan Inj (Vial)] 1 mg IVP Q30M PRN 06/21/23 10:40 Blood Glucose Checks - Eating [RC] 0800,1200,1700,2100 Initiate Hypoglycemia Protocol [RC] .protocol 06/21/23 12:00 Insulin Lispro [Humalog Kwikpen U-100] 1 - 5 unit SUBQ 0800,1200,1700,2100 06/21/23 19:00 Magnesium Oxide [Mag Ox] 400 mg PO DAILYWM 06/22/23 08:08 MAGNESIUM SULFATE 2 GRAMS IV X1 Magnesium Sulfate 2 Gram [Magnesium Sulfate] 2 gm in 50 ml IV ONCE Potassium Phosphate/NS 21 mmol/250 mL x 1 Potassium Phosphate 21 mmol Sodium Chloride 0.9% [Normal Saline 0.9%] 250 ml IV ONCE 06/22/23 09:00 Calcium Carbonate [Tums] 500 mg PO BID Potassium Chloride [Micro-K] 20 meq PO DAILYWM 06/22/23 18:00 Potassium Chloride/Water 10 mEq/100 mL q1h (Enter # of bags) Potassium Chlor 10 Meq/100 ml [Potassium Chloride] 10 meq in 100 ml IV Q1H 06/23/23 05:00 COMPREHENSIVE METABOLIC PANEL [CHEM] DAILYLAB 06/24/23 05:00 COMPREHENSIVE METABOLIC PANEL [CHEM] DAILYLAB 06/25/23 05:00 COMPREHENSIVE METABOLIC PANEL [CHEM] DAILYLAB Subjective - Subjective Patient Reports: Feeling Better (He has minimally more energy, he says) Objective Vital Signs: Vital Signs - 24 hr 06/21/23 06/21/23 06/21/23 09:00 13:00 14:18 Temperature 36.5 C 36.4 C L Heart Rate [ 89 70 Brachial] Heart Rate [ 75 Supine] Respiratory 18 18 Rate Blood Pressure 100/72 120/70 [Right Brachial artery] Blood Pressure 116/79 [Sitting] Blood Pressure 108/75 [Standing] Blood Pressure 105/77 [Supine] O2 Saturation 97 96 06/21/23 06/21/23 06/21/23 14:20 17:00 20:53 Temperature 36.5 C 36.5 C Heart Rate [ 73 73 Brachial] Heart Rate [ 75 Supine] Respiratory 20 20 Rate Blood Pressure 105/74 100/66 [Right Brachial artery] Blood Pressure 116/79 [Sitting] Blood Pressure 108/75 [Standing] Blood Pressure 105/77 [Supine] O2 Saturation 100 99 06/22/23 06/22/23 00:20 05:00 Temperature 36.8 C 36.7 C Heart Rate [ 85 79 Brachial] Heart Rate [ Supine] Respiratory 18 18 Rate Blood Pressure 113/73 117/78 [Right Brachial artery] Blood Pressure [Sitting] Blood Pressure [Standing] Blood Pressure [Supine] O2 Saturation 96 95 Oxygen O2 Source Room air I&O (Last 24 Hrs): Intake and Output Totals x24h 06/20/23 06/21/23 06/22/23 23:59 23:59 23:59 Intake Total 3733.333 4211.667 1257 Output Total 243 6045 825 Balance 2808.333 2036.667 432 General: Alert, Oriented x3 HEENT: Mucous membr. moist/pink Neck: Supple, No JVD Neuro: Alert, Other (R arm an R leg paretic) Cardiovascular: Regular rate, No murmurs Respiratory: No respiratory distress, Breath sounds nml Abdomen: Normal bowel sounds, Other (Mildly distended, tense, no ascites, non- tender) Extremities: No clubbing, No edema, No tenderness/swelling - Results Results: Laboratory Results WBC 6.0 x10^3/uL (4.8-10.8) 06/21/23 07:10 RBC 2.99 10^6/uL (4.70-6.10) L 06/21/23 07:10 Hgb 10.1 g/dL (14.0-18.0) L 06/21/23 07:10 Hct 27.5 % (42.0-52.0) L 06/21/23 07:10 MCV 92.0 fL (80.0-94.0) 06/21/23 07:10 MCH 33.8 pg (27.0-31.0) H 06/21/23 07:10 MCHC 36.7 g/dL (32.0-36.0) H 06/21/23 07:10 RDW 11.9 % (12.0-15.0) L 06/21/23 07:10 Plt Count 182 10^3/uL (130-450) 06/21/23 07:10 MPV 9.6 fL (7.4-11.4) 06/21/23 07:10 Reticulocyte % (Auto) 1.74 % (0.5-2.3) 06/20/23 17:20 Neut # (Auto) 4.2 10^3/uL (1.5-6.6) 06/21/23 07:10 Lymph # (Auto) 1.2 10^3/uL (1.5-3.5) L 06/21/23 07:10 [place] # (Auto) 0.6 10^3/uL (0.0-1.0) 06/21/23 07:10 Eos # (Auto) 0.1 10^3/uL (0.0-0.7) 06/21/23 07:10 Baso # (Auto) 0.0 10^3/uL (0.0-0.1) 06/21/23 07:10 Absolute Nucleated RBC 0.00 x10^3/uL 06/21/23 07:10 Nucleated RBC % 0.0 /100WBC 06/21/23 07:10 Absolute Retic 0.060 10^6/uL (0.020-0.110) 06/20/23 17:20 Sodium 145 mmol/L (135-145) 06/22/23 05:49 Potassium 1.9 mmol/L (3.5-4.5) L* 06/22/23 05:49 Chloride 104 mmol/L (101-111) 06/22/23 05:49 Carbon Dioxide 36 mmol/L (21-32) H 06/22/23 05:49 Anion Gap 5.0 (6-13) L 06/22/23 05:49 BUN 6 mg/dL (6-20) 06/22/23 05:49 Creatinine 0.7 mg/dL (0.6-1.3) 06/22/23 05:49 Estimated GFR (MDRD) 116 (>89) 06/22/23 05:49 Glucose 125 mg/dL (74-104) H 06/22/23 05:49 POC Whole Bld Glucose 118 mg/dL (70 - 100) H 06/22/23 07:40 Estimat Average Glucose 105 mg/dL (70-100) H 06/21/23 07:10 Hemoglobin A1c % 5.3 % (4.27-6.07) 06/21/23 07:10 Calcium 5.6 mg/dL (8.5-10.3) L* 06/22/23 05:49 Phosphorus 1.3 mg/dL (2.5-5.0) L 06/22/23 05:49 Magnesium 1.1 mg/dL (1.7-2.3) L 06/22/23 05:49 Iron 52 ug/dL (50-212) 06/20/23 17:20 TIBC 230 ug/dL (250-450) L 06/20/23 17:20 % Saturation 23 % (20-50) 06/20/23 17:20 Transferrin 164 mg/dL (203-362) L 06/20/23 17:20 Total Bilirubin 0.6 mg/dL (0.2-1.0) 06/22/23 05:49 AST 31 IU/L (10-42) 06/22/23 05:49 ALT 20 IU/L (10-60) 06/22/23 05:49 Alkaline Phosphatase 51 IU/L (42-121) 06/22/23 05:49 Lactate Dehydrogenase 204 IU/L (140-271) 06/20/23 17:20 Total Protein 4.5 g/dL (6.4-8.9) L 06/22/23 05:49 Albumin 2.7 g/dL (3.2-5.5) L 06/22/23 05:49 Globulin 1.8 g/dL (2.1-4.2) L 06/22/23 05:49 Albumin/Globulin Ratio 1.5 (1.0-2.2) 06/22/23 05:49 Vitamin B12 216 pg/mL (180-914) 06/20/23 17:20 Folate 4.6 ng/mL (5.90 - >24.8) L 06/21/23 07:10
[2023-06-22] MEDS: CYANOCOBALAMIN 500 MCG TABLET PO SCH (08:38)
[2023-06-22] MEDS: INSULIN LISPRO 300 UNIT/3 ML PEN SUBQ SCH ×4 (08:38→20:34)
[2023-06-22] MEDS: THIAMINE 100 MG TABLET PO SCH (08:38)
[2023-06-22] MEDS: PRENATAL VITAMIN TABLET PO SCH (08:38)
[2023-06-22] MEDS: MAGNESIUM OXIDE 400 MG TABLET PO SCH (08:38)
[2023-06-22] MEDS: ENOXAPARIN 40 MG/0.4 ML SYRINGE SUBQ SCH (08:39)
[2023-06-22] MEDS: CALCIUM CARBONATE CHEW 500 MG TABLET PO SCH ×2 (08:39→20:34)
[2023-06-22] MEDS ORDERED: POTASSIUM CHLORIDE 10 MEQ CAPSULE PO SCH (09:00)
[2023-06-22] MEDS ORDERED: POTASSIUM PHOSPHATE 21 MMOL in SODIUM CHLORIDE 0.9% 250 ML IV ONE (09:00)
[2023-06-22] MEDS: POTASSIUM CHLOR 10 MEQ/100 ML 10 MEQ/100 ML BAG IV SCH ×4 (17:17→21:52)
[2023-06-22] MEDS ORDERED: D5NS W/20 MEQ KCL 1,000 ML IV SCH (22:45)
[2023-06-23] MEDS: SODIUM CHLORIDE FLUSH 0.9% 10 ML SYRINGE IVP SCH ×3 (00:48→15:58)
[2023-06-23 06:24] LABS: HCT - HEMATOCRIT 25.5 % (42.0-52.0); HGB - HEMOGLOBIN 9.2 g/dL (14.0-18.0); MEAN CORPUSCULAR HEMOGLOBIN 33.6 pg (27.0-31.0); MEAN CORPUSCULAR HGB CONC 36.1 g/dL (32.0-36.0); MEAN CORPUSCULAR VOLUME 93.1 fL (80.0-94.0); MEAN PLATELET VOLUME 9.2 fL (7.4-11.4); RED BLOOD COUNT 2.74 10^6/uL (4.70-6.10); RED CELL DISTRIBUTION WIDTH 12.1 % (12.0-15.0); WHITE BLOOD COUNT 6.2 x10^3/uL (4.8-10.8)
[2023-06-23 06:33] LABS: ALBUMIN 2.7 g/dL (3.2-5.5); MAGNESIUM 1.1 mg/dL (1.7-2.3); PHOSPHORUS 2.6 mg/dL (2.5-5.0)
[2023-06-23 06:42] LABS: ALBUMIN/GLOBULIN RATIO 1.5 (1.0-2.2); BILIRUBIN,TOTAL 0.6 mg/dL (0.2-1.0); CALCIUM 5.4 mg/dL (8.5-10.3); CREATININE 0.6 mg/dL (0.6-1.3); POTASSIUM 2.3 mmol/L (3.5-4.5); TOTAL PROTEIN 4.5 g/dL (6.4-8.9)
[2023-06-23] MEDS ORDERED: D5NS W/20 MEQ KCL 1,000 ML IV SCH (07:22)
[2023-06-23] MEDS ORDERED: MAGNESIUM SULFATE 2 GRAM 2 GM/50 ML BAG IV ONE (07:24)
--- NOTE | 2023-06-23 07:30 | PROVIDER PROGRESS NOTE ---
Assessment/Plan - Problem List (1) Hypokalemia Assessment/Plan: Potassium level still severely low at 12.3 today (alll labs were reviewed). Suspect this deficiency and the others are from chronic poor nutrition from alcohol abuse. Telem has shown no severe dysrhythmias Plan: Increase po KCL 20 mEq daily to BID Give 4 KCL 10 mEq iv riders Monitor BMP daily or BID Remain on telem 2) Hypophosphatemia Conclusion/Plan: Phos has corrected Plan: Monitor PO4 daily 3) Hypocalcemia Conclusion/Plan: Calcium level severely low at 5.4 with Alb last 2.7 Plan: Increase TUMS scheduled BID to TID Start oyster shell calcium 500 mg daily Monitor Ca daily 4) Hypomagnesesia Conclusion/Plan: Magnesium is still severely depleted at 1.1 Plan: Increase Mag ox po BID to TID Give Mag rider today Monitor Mg daily 5) DM type 2 He is on Metformin per reconciled med list His A1c came back at 5.8, consistent with excessively tight glu control His Metformin is currently on hold due to risk of JACQUES with this dehydration and also due to malnutrition Plan: Will taper and stop iv fluids after today Remain off Metformin Glu checks, hypoglycemia protocol and ssI coverage 6) Alcohol abuse Conclusion/Plan: Hx of alcohol use, he stopped 10 days prior to this admission, with minimum withdrawal symptoms at home, he claimed. CIWA protocol stopped SW saw him and he declined assistance for stopping alcohol abuse We found out he is about to start to get Meals on Wheels, as he was only eating 1 meal a day of frozen food Plan: Will check an INR, which has not been done this adm Cont po thiamine daily Cont po vitamin daily 7) Anemia Conclusion/Plan: Hgb of 111 at adm>> 9.2 today after several days of iv fluids His iron panel showed low normal iron stores. His B12 was normal. His folate was low. Plan: Start daily po Folate Follow Hgb daily, transfuse if Hgb <7 8) Weakness following CVA Plan: PT and OT eval and treat Start daily baby ASA w/food If he was on a statin, will stop that given his malnutrition His BP meds are on hold while BP normal, BP still not hypertensive poss from dehydration 9) Depression, major Conclusion/Plan: He describes more than 3 years of anhedonia, multiple years of depressed mood Social work consult requested for MHE and rec. He accepted resources from [employer]. Plan: Will resume his Prozac 10) Diarrhea Conclusion/Plan: Patient self reports daily chronic diarrhea Plan: Monitor if >3 diarrhea BMs per day and then would get C diff test - Current Meds Current Meds: Current Medications Generic Name Dose Route Start Last Admin Trade Name Frehaley PRN Reason Stop Dose Admin Cyanocobalamin 500 mcg 06/21/23 09:00 06/22/23 08:38 Cyanocobalamin 500 Mcg Tablet PO 500 mcg DAILY BUDDY Administration Enoxaparin Sodium 40 mg 06/21/23 09:00 06/22/23 08:39 Enoxaparin 40 Mg/0.4 Ml Syringe SUBQ 40 mg DAILY BUDDY Administration Insulin Human Lispro 1 - 5 unit 06/21/23 12:00 06/22/23 20:34 Insulin Lispro 300 Unit/3 Ml Pen SUBQ 2 unit 0800,1200,1700,2100 BUDDY Administration Protocol Multivit/Folic Acid/Iron 1 tab 06/20/23 18:00 06/22/23 08:38 Vitamin Tablet PO 1 tab DAILYWM BUDDY Administration Sodium Chloride 10 ml 06/20/23 17:00 06/23/23 00:48 Sodium Chloride Flush 0.9% 10 Ml Syringe IVP 10 ml 0100,0900,1700 BUDDY Administration Thiamine HCl 100 mg 06/20/23 17:19 06/22/23 08:38 Thiamine 100 Mg Tablet PO 100 mg DAILY BUDDY Administration - Lab Result Fish Bone Diagrams: 06/23/23 05:59 06/23/23 05:59 - Additional Planning My Orders: My Active Orders 06/23/23 07:22 D5ns W/20 Meq KCl 1,000 ml IV 40 mls/hr 06/23/23 07:24 MAGNESIUM SULFATE 2 GRAMS IV X1 Magnesium Sulfate 2 Gram [Magnesium Sulfate] 2 gm in 50 ml IV ONCE 06/23/23 08:00 Calcium Carbonate [Tums] 500 mg PO TIDWM Magnesium Oxide [Mag Ox] 400 mg PO BIDWM Potassium Chloride [Micro-K] 20 meq PO BIDWM Potassium Chloride/Water 10 mEq/100 mL q1h (Enter # of bags) Potassium Chlor 10 Meq/100 ml [Potassium Chloride] 10 meq in 100 ml IV Q1H 06/23/23 09:00 Aspirin EC [Ecotrin] 81 mg PO DAILY Calcium Carb (Oyster Shell) [[place]co-500] 500 mg PO DAILY FLUoxetine [PROzac] 40 mg PO DAILY 06/24/23 05:00 COMPREHENSIVE METABOLIC PANEL [CHEM] DAILYLAB 06/25/23 05:00 COMPREHENSIVE METABOLIC PANEL [CHEM] DAILYLAB Subjective - Subjective Patient Reports: Feeling Better (since Prozac was resumed) Objective Vital Signs: Vital Signs - 24 hr 06/22/23 06/22/23 06/22/23 08:13 12:06 15:29 Temperature 36.3 C L 36.5 C 36.5 C Heart Rate [ 73 81 76 Brachial] Respiratory 18 18 18 Rate Blood Pressure 112/74 105/66 109/78 [Right Brachial artery] O2 Saturation 96 97 93 06/22/23 06/23/23 06/23/23 20:59 00:32 04:57 Temperature 36.8 C 36.6 C 36.7 C Heart Rate [ 88 92 79 Brachial] Respiratory 18 18 18 Rate Blood Pressure 109/73 118/80 109/77 [Right Brachial artery] O2 Saturation 97 98 97 Oxygen O2 Source Room air I&O (Last 24 Hrs): Intake and Output Totals x24h 06/21/23 06/22/23 06/23/23 23:59 23:59 23:59 Intake Total 4211.667 4565.667 Output Total 2175 2075 825 Balance 2036.667 2490.667 -825 General: Alert, Oriented x3, No acute distress HEENT: EOMI, Mucous membr. moist/pink Neck: Supple, No JVD Neuro: Alert, Other (R arm and leg paretic) Cardiovascular: Regular rate, No murmurs Respiratory: No respiratory distress, Breath sounds nml Abdomen: Normal bowel sounds, Soft, No tenderness Extremities: No clubbing, No edema, No tenderness/swelling - Results Results: Laboratory Results WBC 6.2 x10^3/uL (4.8-10.8) 06/23/23 05:59 RBC 2.74 10^6/uL (4.70-6.10) L 06/23/23 05:59 Hgb 9.2 g/dL (14.0-18.0) L 06/23/23 05:59 Hct 25.5 % (42.0-52.0) L 06/23/23 05:59 MCV 93.1 fL (80.0-94.0) 06/23/23 05:59 MCH 33.6 pg (27.0-31.0) H 06/23/23 05:59 MCHC 36.1 g/dL (32.0-36.0) H 06/23/23 05:59 RDW 12.1 % (12.0-15.0) 06/23/23 05:59 Plt Count 183 10^3/uL (130-450) 06/23/23 05:59 MPV 9.2 fL (7.4-11.4) 06/23/23 05:59 Reticulocyte % (Auto) 1.74 % (0.5-2.3) 06/20/23 17:20 Neut # (Auto) 4.2 10^3/uL (1.5-6.6) 06/21/23 07:10 Lymph # (Auto) 1.2 10^3/uL (1.5-3.5) L 06/21/23 07:10 [place] # (Auto) 0.6 10^3/uL (0.0-1.0) 06/21/23 07:10 Eos # (Auto) 0.1 10^3/uL (0.0-0.7) 06/21/23 07:10 Baso # (Auto) 0.0 10^3/uL (0.0-0.1) 06/21/23 07:10 Absolute Nucleated RBC 0.00 x10^3/uL 06/21/23 07:10 Nucleated RBC % 0.0 /100WBC 06/21/23 07:10 Absolute Retic 0.060 10^6/uL (0.020-0.110) 06/20/23 17:20 Sodium 143 mmol/L (135-145) 06/23/23 05:59 Potassium 2.3 mmol/L (3.5-4.5) L* 06/23/23 05:59 Chloride 101 mmol/L (101-111) 06/23/23 05:59 Carbon Dioxide 36 mmol/L (21-32) H 06/23/23 05:59 Anion Gap 6.0 (6-13) 06/23/23 05:59 BUN 6 mg/dL (6-20) 06/23/23 05:59 Creatinine 0.6 mg/dL (0.6-1.3) 06/23/23 05:59 Estimated GFR (MDRD) 139 (>89) 06/23/23 05:59 Glucose 99 mg/dL (74-104) 06/23/23 05:59 POC Whole Bld Glucose 190 mg/dL (70 - 100) H 06/22/23 20:26 Estimat Average Glucose 105 mg/dL (70-100) H 06/21/23 07:10 Hemoglobin A1c % 5.3 % (4.27-6.07) 06/21/23 07:10 Calcium 5.4 mg/dL (8.5-10.3) L* 06/23/23 05:59 Phosphorus 2.6 mg/dL (2.5-5.0) 06/23/23 05:59 Magnesium 1.1 mg/dL (1.7-2.3) L 06/23/23 05:59 Iron 52 ug/dL (50-212) 06/20/23 17:20 TIBC 230 ug/dL (250-450) L 06/20/23 17:20 % Saturation 23 % (20-50) 06/20/23 17:20 Transferrin 164 mg/dL (203-362) L 06/20/23 17:20 Total Bilirubin 0.6 mg/dL (0.2-1.0) 06/23/23 05:59 AST 45 IU/L (10-42) H 06/23/23 05:59 ALT 25 IU/L (10-60) 06/23/23 05:59 Alkaline Phosphatase 53 IU/L (42-121) 06/23/23 05:59 Lactate Dehydrogenase 204 IU/L (140-271) 06/20/23 17:20 Total Protein 4.5 g/dL (6.4-8.9) L 06/23/23 05:59 Albumin 2.7 g/dL (3.2-5.5) L 06/23/23 05:59 Globulin 1.8 g/dL (2.1-4.2) L 06/23/23 05:59 Albumin/Globulin Ratio 1.5 (1.0-2.2) 06/23/23 05:59 Vitamin B12 216 pg/mL (180-914) 06/20/23 17:20 Folate 4.6 ng/mL (5.90 - >24.8) L 06/21/23 07:10
[2023-06-23] MEDS: CYANOCOBALAMIN 500 MCG TABLET PO SCH (07:59)
[2023-06-23] MEDS: ENOXAPARIN 40 MG/0.4 ML SYRINGE SUBQ SCH (07:59)
[2023-06-23] MEDS: CALCIUM CARBONATE CHEW 500 MG TABLET PO SCH ×3 (07:59→16:18)
[2023-06-23] MEDS: POTASSIUM CHLORIDE 10 MEQ CAPSULE PO SCH ×2 (07:59→16:18)
[2023-06-23] MEDS: MAGNESIUM OXIDE 400 MG TABLET PO SCH ×2 (07:59→16:18)
[2023-06-23] MEDS: PRENATAL VITAMIN TABLET PO SCH (07:59)
[2023-06-23] MEDS: THIAMINE 100 MG TABLET PO SCH (07:59)
[2023-06-23] MEDS: INSULIN LISPRO 300 UNIT/3 ML PEN SUBQ SCH ×4 (08:00→21:16)
[2023-06-23] MEDS ORDERED: FLUOXETINE HCL 20 MG PO SCH (09:00)
[2023-06-23] MEDS ORDERED: FOLIC ACID 1 MG TABLET PO SCH (09:00)
[2023-06-23] MEDS: ASPIRIN EC 81 MG TABLET PO SCH (09:04)
[2023-06-23] MEDS: FLUoxetine 10 MG CAPSULE PO SCH (09:04)
[2023-06-23] MEDS: CALCIUM CARB (OYSTER SHELL) 500 MG TABLET PO SCH (09:04)
[2023-06-23] MEDS: POTASSIUM CHLOR 10 MEQ/100 ML 10 MEQ/100 ML BAG IV SCH ×4 (09:25→12:24)
[2023-06-24] MEDS: SODIUM CHLORIDE FLUSH 0.9% 10 ML SYRINGE IVP SCH ×3 (01:11→16:59)
[2023-06-24 07:02] LABS: ALBUMIN 2.7 g/dL (3.2-5.5); MAGNESIUM 1.2 mg/dL (1.7-2.3); PHOSPHORUS 2.2 mg/dL (2.5-5.0)
[2023-06-24 07:09] LABS: INR 1.3 (0.8-1.2); PT - PROTHROMBIN TIME 13.4 secs (9.9-12.6)
[2023-06-24 07:12] LABS: CALCIUM 5.6 mg/dL (8.5-10.3); CREATININE 0.6 mg/dL (0.6-1.3); POTASSIUM 2.4 mmol/L (3.5-4.5)
--- NOTE | 2023-06-24 07:32 | PROVIDER PROGRESS NOTE ---
Assessment/Plan - Problem List (1) Hypokalemia Assessment/Plan: Potassium level still very low at 2.4 today (all labs were reviewed), despite iv and po replacement given daily since admission Suspect this K deficiency and the others are from chronic poor nutrition related to alcohol abuse. Telem has shown no severe dysrhythmias Plan: Increase po KCL 20 mEq BID to TID Give K iv rider today Monitor BMP daily or BID Remain on telemetry 2) Hypophosphatemia Conclusion/Plan: Phos is again low at 2.2 Plan: Will give K Phos replacement today Monitor PO4 daily 3) Hypocalcemia Conclusion/Plan: Calcium level still very low at 5.6 with Alb last 2.7 Plan: Increase TUMS scheduled BID to TID Cont new oyster shell calcium 500 mg daily Monitor Ca daily 4) Hypomagnesesia Conclusion/Plan: Magnesium is still severely depleted at 1.2, despite iv and po replacement several days Plan: Increase Mag ox po BID to TID Give Mag rider today Monitor Mg daily 5) DM type 2 He is on Metformin per reconciled med list His A1c came back at 5.8, consistent with excessively tight glu control His Metformin is currently on hold due to risk of JACQUES with this dehydration and also due to porr nutritional intake Yesterday I stopped iv fluids since he is hydrating well Plan: Remain off Metformin Glu checks, hypoglycemia protocol and ssI coverage 6) Alcohol abuse Conclusion/Plan: Hx of alcohol use. He stopped 10 days prior to this admission, with minimum withdrawal symptoms at home, he claimed. [facility] protocol stopped SW saw him and he declined assistance for stopping alcohol abuse We found out he is about to start to get Meals on Wheels, as he was only eating 1 meal a day of frozen food Plan: Cont po thiamine and vitamin daily 7) Anemia Conclusion/Plan: Hgb of 11 at adm>> 9.1 today after several days of iv fluids His iron panel showed low-normal values. His B12 was normal. His folate was low. 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 Plan: PT and OT eval and treat Start daily baby ASA w/food If he was on a statin, will stop that given his malnutrition His BP meds are on hold while BP normal, BP still not hypertensive poss from dehydration 9) Depression, major Conclusion/Plan: He describes many years of depressed mood He feels better since his Prozac was resumed here Plan: Cont his Prozac 10) Diarrhea Conclusion/Plan: Patient self reports daily chronic diarrhea here he has 1-2 moderate, loose BMs/day Plan: Monitor if >3 watery diarrhea BMs per day and then would get C diff test - Current Meds Current Meds: Current Medications Generic Name Dose Route Start Last Admin Trade Name Citlalli PRN Reason Stop Dose Admin Aspirin 81 mg 06/23/23 09:00 06/23/23 09:04 Aspirin Ec 81 Mg Tablet PO 81 mg DAILY BUDDY Administration Calcium Carbonate/Glycine 500 mg 06/23/23 08:00 06/23/23 16:18 Calcium Carbonate Chew 500 Mg Tablet PO 500 mg TIDWM BUDDY Administration Calcium Carbonate/Glycine 500 mg 06/23/23 09:00 06/23/23 09:04 Calcium Carb (Oyster Shell) 500 Mg Tablet PO 500 mg DAILY BUDDY Administration Cyanocobalamin 500 mcg 06/21/23 09:00 06/23/23 07:59 Cyanocobalamin 500 Mcg Tablet PO 500 mcg DAILY BUDDY Administration Enoxaparin Sodium 40 mg 06/21/23 09:00 06/23/23 07:59 Enoxaparin 40 Mg/0.4 Ml Syringe SUBQ 40 mg DAILY BUDDY Administration Fluoxetine HCl 40 mg 06/23/23 09:00 06/23/23 09:04 Fluoxetine 10 Mg Capsule PO 40 mg DAILY BUDDY Administration Insulin Human Lispro 1 - 5 unit 06/21/23 12:00 06/23/23 21:16 Insulin Lispro 300 Unit/3 Ml Pen SUBQ Not Given 0800,1200,1700,2100 [facility] Protocol Magnesium Oxide 400 mg 06/23/23 08:00 06/23/23 16:18 Magnesium Oxide 400 Mg Tablet PO 400 mg BIDWM BUDDY Administration Multivit/Folic Acid/Iron 1 tab 06/20/23 18:00 06/23/23 07:59 Vitamin Tablet PO 1 tab DAILYWM [facility] Administration Sodium Chloride 10 ml 06/20/23 17:00 06/24/23 01:11 Sodium Chloride Flush 0.9% 10 Ml Syringe IVP Not Given 0100,0900,1700 [facility] Thiamine HCl 100 mg 06/20/23 17:19 06/23/23 07:59 Thiamine 100 Mg Tablet PO 100 mg DAILY BUDDY Administration - Lab Result Fish Bone Diagrams: 06/24/23 05:19 06/24/23 05:19 - Additional Planning My Orders: My Active Orders 06/23/23 08:00 Calcium Carbonate [Tums] 500 mg PO TIDWM Magnesium Oxide [Mag Ox] 400 mg PO BIDWM 06/23/23 09:00 Aspirin EC [Ecotrin] 81 mg PO DAILY Calcium Carb (Oyster Shell) [[place]-500] 500 mg PO DAILY FLUoxetine [PROzac] 40 mg PO DAILY 06/24/23 08:00 Potassium Chloride [Micro-K] 20 meq PO TIDWM Potassium Phosphate/NS 15 mmol/250 mL q4h Potassium Phosphate 15 mmol Sodium Chloride 0.9% [Normal Saline 0.9%] 250 ml IV Q4H 06/24/23 09:00 Magnesium Sulfate 2 Gram [Magnesium Sulfate] 2 gm in 50 ml IV 0900,1700 06/25/23 05:00 ALBUMIN [CHEM] DAILYLAB BMP - BASIC METABOLIC PANEL [CHEM] DAILYLAB CALCIUM [CHEM] DAILYLAB HGB - HEMOGLOBIN [HEME] DAILYLAB MAGNESIUM [CHEM] DAILYLAB PHOSPHORUS [CHEM] DAILYLAB 06/26/23 05:00 BMP - BASIC METABOLIC PANEL [CHEM] DAILYLAB CALCIUM [CHEM] DAILYLAB HGB - HEMOGLOBIN [HEME] DAILYLAB MAGNESIUM [CHEM] DAILYLAB 06/27/23 05:00 BMP - BASIC METABOLIC PANEL [CHEM] DAILYLAB CALCIUM [CHEM] DAILYLAB HGB - HEMOGLOBIN [HEME] DAILYLAB MAGNESIUM [CHEM] DAILYLAB Subjective - Subjective Patient Reports: Resting Comfortably, No Complaints Objective Vital Signs: Vital Signs - 24 hr 06/23/23 06/23/23 06/23/23 07:36 11:30 15:53 Temperature 36.8 C 36.6 C 36.6 C Heart Rate [ 74 79 77 Brachial] Respiratory 16 18 18 Rate Blood Pressure 106/74 113/81 H 107/82 H [Right Brachial artery] O2 Saturation 96 94 96 06/23/23 06/24/23 06/24/23 21:57 00:13 04:45 Temperature 36.6 C 36.7 C 36.6 C Heart Rate [ 77 82 72 Brachial] Respiratory 18 18 18 Rate Blood Pressure 118/87 H 117/80 117/83 H [Right Brachial artery] O2 Saturation 96 96 97 Oxygen O2 Source Room air I&O (Last 24 Hrs): Intake and Output Totals x24h 06/22/23 06/23/23 06/24/23 23:59 23:59 23:59 Intake Total 4565.667 0026.538 1320 Output Total 2075 3075 1150 Balance 2490.667 -1273.334 -150 General: Alert, Oriented x3 HEENT: Mucous membr. moist/pink Neck: Supple Neuro: Alert, Other (R sided paresis) Cardiovascular: Regular rate, No murmurs Respiratory: No respiratory distress Abdomen: Soft Extremities: No clubbing, No edema, No tenderness/swelling - Results Results: Laboratory Results WBC 6.2 x10^3/uL (4.8-10.8) 06/23/23 05:59 RBC 2.74 10^6/uL (4.70-6.10) L 06/23/23 05:59 Hgb 9.1 g/dL (14.0-18.0) L 06/24/23 05:19 Hct 25.5 % (42.0-52.0) L 06/23/23 05:59 MCV 93.1 fL (80.0-94.0) 06/23/23 05:59 MCH 33.6 pg (27.0-31.0) H 06/23/23 05:59 MCHC 36.1 g/dL (32.0-36.0) H 06/23/23 05:59 RDW 12.1 % (12.0-15.0) 06/23/23 05:59 Plt Count 183 10^3/uL (130-450) 06/23/23 05:59 MPV 9.2 fL (7.4-11.4) 06/23/23 05:59 Reticulocyte % (Auto) 1.74 % (0.5-2.3) 06/20/23 17:20 Neut # (Auto) 4.2 10^3/uL (1.5-6.6) 06/21/23 07:10 Lymph # (Auto) 1.2 10^3/uL (1.5-3.5) L 06/21/23 07:10 [place] # (Auto) 0.6 10^3/uL (0.0-1.0) 06/21/23 07:10 Eos # (Auto) 0.1 10^3/uL (0.0-0.7) 06/21/23 07:10 Baso # (Auto) 0.0 10^3/uL (0.0-0.1) 06/21/23 07:10 Absolute Nucleated RBC 0.00 x10^3/uL 06/21/23 07:10 Nucleated RBC % 0.0 /100WBC 06/21/23 07:10 Absolute Retic 0.060 10^6/uL (0.020-0.110) 06/20/23 17:20 PT 13.4 secs (9.9-12.6) H 06/24/23 05:19 INR 1.3 (0.8-1.2) H 06/24/23 05:19 Sodium 142 mmol/L (135-145) 06/24/23 05:19 Potassium 2.4 mmol/L (3.5-4.5) L* 06/24/23 05:19 Chloride 102 mmol/L (101-111) 06/24/23 05:19 Carbon Dioxide 35 mmol/L (21-32) H 06/24/23 05:19 Anion Gap 5.0 (6-13) L 06/24/23 05:19 BUN 6 mg/dL (6-20) 06/24/23 05:19 Creatinine 0.6 mg/dL (0.6-1.3) 06/24/23 05:19 Estimated GFR (MDRD) 139 (>89) 06/24/23 05:19 Glucose 97 mg/dL (74-104) 06/24/23 05:19 POC Whole Bld Glucose 130 mg/dL (70 - 100) H 06/23/23 21:02 Estimat Average Glucose 105 mg/dL (70-100) H 06/21/23 07:10 Hemoglobin A1c % 5.3 % (4.27-6.07) 06/21/23 07:10 Calcium 5.6 mg/dL (8.5-10.3) L* 06/24/23 05:19 Phosphorus 2.2 mg/dL (2.5-5.0) L 06/24/23 05:19 Magnesium 1.2 mg/dL (1.7-2.3) L 06/24/23 05:19 Iron 52 ug/dL (50-212) 06/20/23 17:20 TIBC 230 ug/dL (250-450) L 06/20/23 17:20 % Saturation 23 % (20-50) 06/20/23 17:20 Transferrin 164 mg/dL (203-362) L 06/20/23 17:20 Total Bilirubin 0.6 mg/dL (0.2-1.0) 06/23/23 05:59 AST 45 IU/L (10-42) H 06/23/23 05:59 ALT 25 IU/L (10-60) 06/23/23 05:59 Alkaline Phosphatase 53 IU/L (42-121) 06/23/23 05:59 Lactate Dehydrogenase 204 IU/L (140-271) 06/20/23 17:20 Total Protein 4.5 g/dL (6.4-8.9) L 06/23/23 05:59 Albumin 2.7 g/dL (3.2-5.5) L 06/24/23 05:19 Globulin 1.8 g/dL (2.1-4.2) L 06/23/23 05:59 Albumin/Globulin Ratio 1.5 (1.0-2.2) 06/23/23 05:59 Vitamin B12 216 pg/mL (180-914) 06/20/23 17:20 Folate 4.6 ng/mL (5.90 - >24.8) L 06/21/23 07:10
[2023-06-24] MEDS: INSULIN LISPRO 300 UNIT/3 ML PEN SUBQ SCH ×4 (07:44→20:15)
[2023-06-24] MEDS: POTASSIUM PHOSPHATE 15 MMOL in SODIUM CHLORIDE 0.9% 250 ML IV SCH ×2 (08:33→12:46)
[2023-06-24] MEDS: MAGNESIUM SULFATE 2 GRAM 2 GM/50 ML BAG IV SCH ×2 (08:33→16:51)
[2023-06-24] MEDS: ENOXAPARIN 40 MG/0.4 ML SYRINGE SUBQ SCH (08:34)
[2023-06-24] MEDS: CALCIUM CARBONATE CHEW 500 MG TABLET PO SCH ×3 (08:34→16:51)
[2023-06-24] MEDS: CALCIUM CARB (OYSTER SHELL) 500 MG TABLET PO SCH (08:34)
[2023-06-24] MEDS: FLUoxetine 10 MG CAPSULE PO SCH (08:35)
[2023-06-24] MEDS: PRENATAL VITAMIN TABLET PO SCH (08:35)
[2023-06-24] MEDS: ASPIRIN EC 81 MG TABLET PO SCH (08:35)
[2023-06-24] MEDS: POTASSIUM CHLORIDE 10 MEQ CAPSULE PO SCH ×3 (08:35→16:59)
[2023-06-24] MEDS: MAGNESIUM OXIDE 400 MG TABLET PO SCH ×2 (08:35→16:59)
[2023-06-24] MEDS: CYANOCOBALAMIN 500 MCG TABLET PO SCH (08:35)
[2023-06-24] MEDS: THIAMINE 100 MG TABLET PO SCH (08:35)
[2023-06-25] MEDS: SODIUM CHLORIDE FLUSH 0.9% 10 ML SYRINGE IVP SCH ×3 (00:31→17:05)
[2023-06-25 06:04] LABS: ALBUMIN 2.8 g/dL (3.2-5.5); MAGNESIUM 1.5 mg/dL (1.7-2.3); PHOSPHORUS 3.4 mg/dL (2.5-5.0)
[2023-06-25 06:33] LABS: CALCIUM 6.2 mg/dL (8.5-10.3)
[2023-06-25 07:13] LABS: CREATININE 0.6 mg/dL (0.6-1.3); POTASSIUM 2.9 mmol/L (3.5-4.5)
[2023-06-25] MEDS: CALCIUM CARB (OYSTER SHELL) 500 MG TABLET PO SCH (08:06)
[2023-06-25] MEDS: MAGNESIUM OXIDE 400 MG TABLET PO SCH ×2 (08:06→17:05)
[2023-06-25] MEDS: CALCIUM CARBONATE CHEW 500 MG TABLET PO SCH ×3 (08:06→17:05)
[2023-06-25] MEDS: FLUoxetine 10 MG CAPSULE PO SCH (08:06)
[2023-06-25] MEDS: PRENATAL VITAMIN TABLET PO SCH (08:06)
[2023-06-25] MEDS: THIAMINE 100 MG TABLET PO SCH (08:07)
[2023-06-25] MEDS: CYANOCOBALAMIN 500 MCG TABLET PO SCH (08:07)
[2023-06-25] MEDS: ASPIRIN EC 81 MG TABLET PO SCH (08:07)
[2023-06-25] MEDS: POTASSIUM CHLORIDE 10 MEQ CAPSULE PO SCH (08:07)
[2023-06-25] MEDS: ACETAMINOPHEN 325 MG TABLET PO PRN ×2 (08:07→12:11)
[2023-06-25] MEDS: INSULIN LISPRO 300 UNIT/3 ML PEN SUBQ SCH ×4 (08:08→20:44)
[2023-06-25] MEDS: ENOXAPARIN 40 MG/0.4 ML SYRINGE SUBQ SCH (08:08)
[2023-06-25] MEDS ORDERED: CALCIUM GLUC 1,000MG/50ML-NACL 1,000 MG/50 ML BAG IV ONE (08:30)
[2023-06-25] MEDS ORDERED: MAGNESIUM SULFATE 2 GRAM 2 GM/50 ML BAG IV ONE (08:31)
[2023-06-25] MEDS: POTASSIUM CHLORIDE 20 MEQ TABLET PO SCH ×2 (12:02→17:05)
[2023-06-25 15:43] LABS: CALCIUM 7.8 mg/dL (8.5-10.3); CREATININE 0.6 mg/dL (0.6-1.3); POTASSIUM 3.2 mmol/L (3.5-4.5)
--- NOTE | 2023-06-25 15:56 | PROVIDER PROGRESS NOTE ---
Progress Note June 25, 2023 3:45 PM He has minimal diarrhea. Stool is loose but not runny. No abdominal pain. Just feels tired and sleepy. But overall has much improved since he came into the hospital. He has been receiving continual supplementation for potassium, calcium, magnesium. Yesterday received supplementation. This morning potassium is 2.9, calcium 6.2, magnesium 1.5. As such I gave him IV calcium, IV magnesium, and p.o. potassium. Repeat labs at 3 in the afternoon show him to have a potassium of 3.2. Calcium up to 7.8. Exam: Temperature is 36.4, heart rate 67, blood pressure 115/76, respirations 18, 99% on room air. Right now he tells me pain is a 0 out of a 10. Its his shoulder that hurts him. Short statured gentleman at 5 foot 7 inches tall, 71 kg. Asleep but easily awakens, alert and oriented to person, place, situation Male pattern baldness, long patchy blum Supple neck with shotty adenopathy Clear lungs without any increased respiratory effort Regular rate and rhythm Abdomen soft, nontender, hypoactive bowel sounds, nondistended Extremities without edema Rehab therapy saw him today.Pt req CGAx1-2 for STS t/fs from various surfaces. CGAx1 and SBAx1 for chair follow during functional mobility in room and hallway ~250' using quad cane. Pt reports using a quad cane at home and not regularly wearing his AFO for the RLE. Pt demonstrated good activity tolerance and endurance. Seated in b/s chair with alarm on, call katz in reach, and all needs met. Patient supine in bed upon arrival, agreeable to OT/PT. Performed supine>sitting EOB (SBA), improved from requiring MinAx2. Patient continues to present with RUE wrist/elbow flexion posturing. Performed STS c large base quad cane in LUE (SBAx2), improved from requiring MinAx2 with 2WW. Unable to assess transfers/gait with AFO, as patient unable to acquire orthotic from home, not available at hospital. Patient demonstrates safety with hand placement during STS transfers. Patient performs stand pivot transfers c large base quad cane safely (SBAx2). Ambulated with large base quad cane x approx 120' with chair follow for safety as patient only able to ambulate 5' with min-modA at previous visit, now progressed to ambulating 120' (CGAx2), 2 trials, with standing rest break in between. During ambulation, patient demonstrates step-to gait pattern, advancing quad cane with RLE, min cues for ensuring full contact of 4 corners of cane with ground with each step for increased safety. Patient owns small base quad cane, recommended to patient to acquire large base for increased stability, and patient is aware of [facility]. Provided patient education regarding recommendation for wearing AFO/shoes and use of quad cane for gait mobility to decrease fall risk, as patient reported typically walking without orthotic in home. Provided patient education regarding fall safety/prevention and demonstrating safety with turns with AD support. Patient reports he feels he is ambulating better than he was prior to admission. With increased fatigue, patient demonstrates decreased control of RLE knee with noted increased hyperextension of knee with weight-bearing, thus educated patient on importance of taking breaks as needed to prevent knee buckling. Patient left sitting in bedside recliner, call button and needs in reach, UEs supported on pillows, chair alarm on. They recommend discharge to home with home health PT and OT. Lab: Repeat BMP this afternoon with sodium 140, potassium 3.2. BUN and creatinine are normal. Carbon dioxide is now normal. Glucose after lunch and before dinner is 186. Fasting glucose this morning was 139. Assessment/Plan 57-year-old white male who lives alone. Becoming less and less independent in his own home. The discussion has been alf facility versus home health. The main problem is gait abnormality, increased extensor tone. Patient is adamant he will not go to alf facility even if for temporary rehab. He drinks a pint of whiskey a day and has daily diarrhea from metformin, and poor nutritional intake. - Problem List (1) Hypokalemia Assessment/Plan: Potassium level still very low at 2.9 today (all labs were reviewed), despite iv and po replacement given daily since admission Suspect this K deficiency and the others are from chronic poor nutrition related to alcohol abuse. Telem has shown no severe dysrhythmias Plan: He went from potassium chloride 20 mEq twice daily to 3 times daily. I will increase this to 40 mEq p.o. 3 times daily.He responded to this by having a better potassium this afternoon. No potassium rider today since I am giving him calcium and magnesium riders. Monitor BMP daily or BID Remain on telemetry 2) Hypophosphatemia Conclusion/Plan: Phosphorus normal today. Plan: Monitor PO4 daily 3) Hypocalcemia Conclusion/Plan: Calcium level still low at 6.2 (was 5.6 yesterday with Alb last 2.7). He is on Tums 3 times daily now.He is also on Ultra-Sabra calcium 500 mg daily. Plan: Calcium gluconate rider x1 Monitor Ca daily 4) Hypomagnesesia Conclusion/Plan: Magnesium was 1.2 yesterday. Supplemented and now 1.5 today. Magnesium rider ordered. He is on magnesium oxide 3 times daily now. But this may be a problem and that this patient already gets diarrhea from metformin. We will have to watch his frequency and number of stools to assess whether he can do 3 times daily magnesium or not Plan: Monitor Mg daily 5) DM type 2 He is on Metformin per reconciled med list His A1c came back at 5.8, consistent with excessively tight glu control His Metformin is currently on hold due to risk of JACQUES with this dehydration and also due to poor nutritional intake IV fluids discontinued June 23. Plan: Remain off Metformin Glu checks, hypoglycemia protocol and ssI coverage 6) Alcohol abuse Conclusion/Plan: Hx of alcohol use. He stopped 10 days prior to this admission, with minimum withdrawal symptoms at home, he claimed. [facility] protocol stopped SW saw him and he declined assistance for stopping alcohol abuse We found out he is about to start to get Meals on Wheels, as he was only eating 1 meal a day of frozen food. He has also been given the information for [facility] services. Plan: Cont po thiamine and vitamin daily Discussed eventual need for placement down the road if he resumes alcohol abuse. half-way facility placement or some type of structured environment would be needed in a few years. I discussed this with social work to see if we can get Medicaid application in place to help with that eventuality down the road 7) Anemia Conclusion/Plan: Hgb of 11 at adm>> 9.1 after several days of iv fluids His iron panel showed low-normal values. His B12 was normal. His folate was low. 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 He was already started on a baby aspirin prior to today. Was on a statin but that was stopped because of malnutrition. BP meds on hold because BP normal. Plan: PT and OT eval and treat 9) Depression, major Conclusion/Plan: He describes many years of depressed mood He feels better since his Prozac was resumed here Plan: Cont his Prozac 10) Diarrhea Conclusion/Plan: Patient self reports daily chronic diarrhea here he has 1-2 moderate, loose BMs/day. He feels this is improved from when he was at home. Plan: Monitor if >3 watery diarrhea BMs per day and then would get C diff test
[2023-06-25] MEDS ORDERED: diltiaZEM INJ 5 MG/ML VIAL ONE (21:11)
[2023-06-26] MEDS: SODIUM CHLORIDE FLUSH 0.9% 10 ML SYRINGE IVP SCH ×2 (00:49→08:02)
[2023-06-26 06:08] LABS: CALCIUM 7.7 mg/dL (8.5-10.3); CREATININE 0.6 mg/dL (0.6-1.3); MAGNESIUM 1.6 mg/dL (1.7-2.3); POTASSIUM 3.6 mmol/L (3.5-4.5)
[2023-06-26 07:28] VITALS: O2SAT 96
[2023-06-26] MEDS: INSULIN LISPRO 300 UNIT/3 ML PEN SUBQ SCH ×2 (07:53→11:46)
[2023-06-26] MEDS: THIAMINE 100 MG TABLET PO SCH (08:01)
[2023-06-26] MEDS: CALCIUM CARBONATE CHEW 500 MG TABLET PO SCH ×2 (08:01→12:08)
[2023-06-26] MEDS: ENOXAPARIN 40 MG/0.4 ML SYRINGE SUBQ SCH (08:01)
[2023-06-26] MEDS: PRENATAL VITAMIN TABLET PO SCH (08:01)
[2023-06-26] MEDS: CALCIUM CARB (OYSTER SHELL) 500 MG TABLET PO SCH (08:01)
[2023-06-26] MEDS: ASPIRIN EC 81 MG TABLET PO SCH (08:01)
[2023-06-26] MEDS: CYANOCOBALAMIN 500 MCG TABLET PO SCH (08:01)
[2023-06-26] MEDS: MAGNESIUM OXIDE 400 MG TABLET PO SCH (08:01)
[2023-06-26] MEDS: POTASSIUM CHLORIDE 20 MEQ TABLET PO SCH ×2 (08:01→12:08)
[2023-06-26] MEDS: FLUoxetine 10 MG CAPSULE PO SCH (08:01)
--- NOTE | 2023-06-26 08:41 | Discharge Plan ---
Discharge Plan Problem Reviewed?: Yes Disposition: Home, Self Care Condition: Fair Prescriptions: Potassium Chloride [K-Dur] 20 meq PO DAILY #30 tab Magnesium Citrate and Oxide [Magnesium] 500 mg PO BID #120 cap Pnv No.121/Iron/Folic Acid [ Multivitamin Tablet] 1 each PO DAILY #100 tablet Thiamine [Vitamin B-1] 100 mg PO DAILY #30 tab Cyanocobalamin [Vitamin B-12] 500 mcg PO DAILY #30 tab Diet: Regular Shower Restrictions: No Driving Restrictions: No Health Concerns: Unfortunately you are a middle-age gentleman who drinks a pint of whiskey a day with chronic alcohol abuse. On top of that you are with a poor nutritional status due to social circumstances. You have chronic daily diarrhea from metformin. You also have a history of a stroke with right body weakness that still present. You came in because you were just feeling awful, and in the emergency room we found you to be dehydrated, with a low blood pressure and abnormal electrolytes with potassium, calcium, magnesium. We have spent the last few days supplementing those electrolytes and now they are normal. You are now ready to go home. Plan of Treatment: We would respectfully asked you to please stop drinking. You already have a history of stroke, and diabetes. The combination of alcoholism with vascular disease will lead to a much earlier complications from a care perspective. We predict that you will need long-term care at a much earlier age than normal. You could delay that by taking better care of your physical health. Please see your primary care provider and follow-up in the next 1 to 2 weeks. If your diarrhea returns from your metformin, asked your primary care provider if there is another drug for your diabetes. We are sending you home on many vitamin supplements. We are sending you home on potassium, calcium, magnesium, folate, and B12/thiamine. Please have your primary care provider check your blood work in the next 1 to 2 weeks to make sure your levels are staying normal. Care Goals: 1. To stop drinking 2. To start planning for the future where you will most likely need long-term care. Consider starting a Medicaid application. When the time comes, if you have Medicaid in place, it would pay for your ability to be in a long-term care facility. 3. To remain independent in your own home for as long as possible No Smoking: If you smoke, Please STOP! Call for help.
[2023-06-26 12:18] VITALS: BP 115/83
--- NOTE | 2023-06-27 07:11 | DISCHARGE SUMMARY ---
Discharge Summary Admit Date: 06/20/23 Discharge Date: 06/26/23 Discharging Provider: Alicia Aguilera MD Primary Care Provider: JEREMIAH Lucas Code Status: Attempt Resuscitation Condition at Discharge: Fair Discharge Disposition: 01 Home, Self Care - DIAGNOSES Discharge Diagnoses with Status of Each Condition: 1. Hypokalemia 2. Hypophosphatemia 3. Hypocalcemia 4. Hypomagnesemia 5. Type 2 diabetes mellitus 6. Chronic alcohol abuse 7. Anemia 8. Weakness following cerebrovascular accident 9. Major depressive disorder 10. Diarrhea - HPI History of Present Illness: Drew is a 57-year-old man with history of DM2, alcohol abuse, CVA, and hx of stroke 10 years ago which left him with right-sided deficits. He has been feeling off for about the last 10 days. Patient confirms regularly drinking 1 pint of whisky a day, but has not had alcohol for 10 days and he stopped drinking alcohol because he felt "dehydrated". He states he has consumed water and Gatorade regularly and has not had a bowel movement in 5 days, but denies constipation symptoms. He has chronic diarrhea with metformin use. He feels li ght headed when trying to transfer but denies headaches. He has slight cough when speaking. He does not have any chest pain, palpitations, SOB, dyspnea, or abdomen pain. Blood pressure during admission was 86/40 but have stabilized since. Labs show electrolyte imbalance with anemia and profound hypokalemia, profound hypocalcemia, and hypomagnesemia. Lab values indicate true calcium deficiency. Patient has been admitted to inpatient for electrolyte stabilization and care has begun with IV fluids and supplement electrolytes. - Past Medical History Cardiovascular: reports: Hypertension, Coronary artery disease Respiratory: reports: None Neuro: reports: None Endocrine/Autoimmune: reports: Type 2 diabetes GI: reports: None PITCH FILLER: reports: None : reports: Other (chronic diarrhea, constipation past 5 days) HEENT: reports: None Psych: reports: None Musculoskeletal: reports: Hemiplegia (on right side ) Derm: reports: None Other Past Medical History: R sided deficit from 2016 stroke, chews tobacco, umbilical hernia - Past Surgical History Ortho: reports: Other - HOSPITAL COURSE Hospital Course: 57-year-old white male who lives alone. Becoming less and less independent in his own home. The discussion has been long term facility versus home health. The main problem is gait abnormality, increased extensor tone. Patient is adamant he will not go to long term facility even if for temporary rehab. He drinks a pint of whiskey a day and has daily diarrhea from metformin, and poor nutritional intake. (1) Hypokalemia Assessment/Plan: Potassium level still very low at 2.9 today (all labs were reviewed), despite iv and po replacement given daily since admission Suspect this K deficiency and the others are from chronic poor nutrition related to alcohol abuse. In the end he required 40 mEq of potassium 3 times a day to maintain his pota ssium levels. He will need to be followed up by his primary care provider and have a BMP done at his next visit. Hopefully he will be seen in the next 1 to 2 weeks. While on telemetry there were no arrhythmias. 2) Hypophosphatemia Conclusion/Plan: Supplemented and became normal by discharge. 3) Hypocalcemia Conclusion/Plan: He was started on Tums 3 times a day as well as calcium 500 mg daily and calcium was able to become normal.He will be sent home on a Calcium prescription 4) Hypomagnesesia Conclusion/Plan: Initially supplemented with potassium IV riders. Then on oral magnesium. Our worry is that he will continue to have diarrhea in the outpatient setting with his metformin and his potassium, calcium, magnesium will continue to be low. He may want to consider getting off of metformin. Magnesium supplements were also prescribed 5) DM type 2 At home he takes metformin which she says causes him diarrhea. His A1c was 5.8%. We held his metformin while he was in the hospital. He is going to be resuming it in the outpatient setting but he may be candidate for going on a different medication if the metformin continues to cause diarrhea. 6) Alcohol abuse Conclusion/Plan: He stopped drinking 10 days prior to admission with minimal withdrawal symptoms at home he tells us. CIWA protocol was initially started but discontinued since he never needed it. Social work saw him in avail him of opportunities to stop drinking. Social work was able to get him started on Meals on Wheels and he was also given information for [employer]. He is to continue on thiamine and vitamin. Can Discussed eventual need for placement down the road if he resumes alcohol abuse. prison facility placement or some type of structured environment would be needed in a few years. I discussed this with social work to see if we can get Medicaid application in place to help with that eventuality down the road 7) Anemia Conclusion/Plan: Hgb of 11 at adm>> 9.1 after several days of iv fluids His iron panel showed low-normal values. His B12 was normal. His folate was low. Hopefully with improved nutrition, and vitamins, and thiamine his anemia will resolve. Also if he stops drinking 8) Weakness following CVA He has severe R-sided deficit after CVA 10 yrs ago. He was already started on a baby aspirin prior to today. Was on a statin but that was stopped because of malnutrition. BP meds on hold because BP normal. He was seen and evaluated by physical therapy. Did receive treatment while here. 9) Depression, major Conclusion/Plan: He describes many years of depressed mood He feels better since his Prozac was resumed here 10) Diarrhea Conclusion/Plan: Patient self reports daily chronic diarrhea here he has 1-2 moderate, loose BMs/day. He feels this is improved from when he was at home. Diarrhea improved substantially while here. At discharge temperature was 36.5. Heart rate 80. Blood pressure 115/83. Respirations 16. 96% on room air. 5 feet 7 inches tall, 70.5 kg. Disheveled medium statured white male who looks older than stated age. Residual right body weakness due to old stroke. Neck is supple without bruits. Lungs had diminished breath sounds at the bases but were otherwise clear. Regular rate and rhythm. And abdomen that was soft, nontender with normal bowel sounds. He requires contact-guard assist with 1-2 people to go from sitting to standing and transferring. He was able to walk 250 feet in the hallway using a quad cane. He reports using his quad cane at home but not regularly wearing his AFO for the right lower extremity. He demonstrated good activity tolerance and endurance. We are recommending home health PT and OT and equipment to be a raised toilet seat, commode, grab bars, shower Bacher, adaptive self care services. This document was made in part using voice recognition software. While efforts are made to proofread this document, sound alike and grammatical errors may occur. Greater than 30 minutes was spent coordinating discharge. Patient is worried that he will not be able to get all of this magnesium/calcium/potassium supplements because he cannot afford it. I am hoping that because I wrote prescriptions for his insurance plan will pay for it. - ALLERGIES Allergies/Adverse Reactions: Allergies Allergy/AdvReac Type Severity Reaction Status Date / Time No Known Drug Allergies Allergy Verified 06/20/23 11:40 - MEDICATIONS Home Medications: Ambulatory Orders Medication Instructions Recorded Confirmed Amlodipine Besylate [Norvasc] 10 mg PO DAILY 06/20/23 06/20/23 Fluoxetine HCl [Prozac] 40 mg PO DAILY 06/20/23 06/20/23 Lisinopril [Zestril] 30 mg PO DAILY 06/20/23 06/20/23 Metoprolol Tartrate [Lopressor] 50 mg PO BID 06/20/23 06/20/23 Rosuvastatin Calcium [Crestor] 10 mg PO HS 06/20/23 06/20/23 metFORMIN [Glucophage] 1,000 mg PO ONCE 06/20/23 06/20/23 Blood Sugar Diagnostic [Truetrack 1 each MC DAILY #100 each 06/26/23 Test Strip] Calcium Carb (Oyster Shell) 500 mg PO TIDWM #100 tab 06/26/23 [[place]-500] Cyanocobalamin [Vitamin B-12] 500 mcg PO DAILY #30 tab 06/26/23 Lancets 1 each MC DAILY #100 ea 06/26/23 Magnesium Citrate and Oxide 500 mg PO BID #120 cap 06/26/23 [Magnesium] Pnv No.121/Iron/Folic Acid 1 each PO DAILY #100 tablet 06/26/23 [ Multivitamin Tablet] Potassium Chloride [K-Dur] 20 meq PO DAILY #30 tab 06/26/23 Thiamine [Vitamin B-1] 100 mg PO DAILY #30 tab 06/26/23 - LABS Result Diagrams: 06/26/23 05:38 06/26/23 05:38
== END 2023-06-26 14:10 | disposition home or self-care (01) | DRG 641 ==
LOC: EDUNIT# → ED 11:18 → MS2 13:29
PROVIDERS: ADMIT Specialist; ATTEND Specialist
DX: E87.6 Hypokalemia (principal); I69.351 Hemiplegia and hemiparesis following cerebral infarction affecting right dominant side; K52.1 Toxic gastroenteritis and colitis; E46 Unspecified protein-calorie malnutrition; E83.39 Other disorders of phosphorus metabolism; E83.51 Hypocalcemia; E83.42 Hypomagnesemia; E11.9 Type 2 diabetes mellitus without complications; F10.10 Alcohol abuse, uncomplicated; D64.9 Anemia, unspecified; F32.9 Major depressive disorder, single episode, unspecified; I10 Essential (primary) hypertension; I25.10 Atherosclerotic heart disease of native coronary artery without angina pectoris; F17.220 Nicotine dependence, chewing tobacco, uncomplicated; R26.9 Unspecified abnormalities of gait and mobility; T38.3X5A Adverse effect of insulin and oral hypoglycemic [antidiabetic] drugs, initial encounter; Y92.009 Unspecified place in unspecified non-institutional (private) residence as the place of occurrence of the external cause; Z79.84 Long term (current) use of oral hypoglycemic drugs; Z79.82 Long term (current) use of aspirin; E86.0 Dehydration; Z68.28 Body mass index [BMI] 28.0-28.9, adult
CPT/HCPCS: 36415; 74019; 80048; 80053; 82040; 82607; 82746; 83036; 83540; 83615; 83735; 84100; 84132; 84466; 85018; 85025; 85027; 85045; 85610; 96361; 96365; 96368; 97116; 97162; 97166; 97530; 97535; 99285; 99406; A9270; J1650; J7120